=== PATIENT | female | born 1980 | race Caucasian/White ===

== ENCOUNTER 2020-10-23 23:01 | Emergency (ER) | payer MEDICAID, SELFPAY ==
--- NOTE | ~2020-10-23 | XR_ITS ---
EXAMINATION: XR ABDOMEN KUB CLINICAL INDICATION: Abdominal pain COMPARISON: None TECHNIQUE: AP view of the abdomen. FINDINGS: The bowel gas pattern is normal with no evidence of ileus or obstruction. No unusual soft tissue calcifications are noted. The bones are unremarkable. XR/XR KUB IMPRESSION: Unremarkable examination.
[2020-10-23 23:07] VITALS: BP 154/92; PULSE 80; RESP 16; TEMP 36.8; O2SAT 99; BMI 36.7
--- NOTE | 2020-10-23 23:13 | ED.ABDPAIN ---
HPI - Abdominal Pain General Chief Complaint: Abdominal Pain Stated Complaint: abd pain constipation X 3 days Time Seen by Provider: 10/23/20 23:09 Source: patient and EMS Mode of arrival: EMS Limitations: no limitations History of Present Illness HPI narrative: 39 yo female with anxiety under significant amount of stress this week is just about to have her 3rd tomorrow - c/o n/v as well as no BM in 3 days, has no appetite, feels full, tried OTC laxatives and enema without relief, taking clonazepam 1mg BID no change in dose at this time MD elicited complaint: abdominal pain and other (constipation) Onset (ago): day(s) (3) Pain Consistency: constant Location: epigastric Severity: mild Quality: fullness and dull Radiation: none Migration to: no migration Exacerbating factors: eating Relieving factors: nothing Context: other (significant stress) Associated symptoms: nausea, vomiting and constipation Related Data Previous Rx's Medication Instructions Recorded lactulose 15 ml PO DAILY PRN #600 ml 10/24/20 Allergies Allergy/AdvReac Type Severity Reaction Status Date / Time acetaminophen [Vicodin] Allergy Unknown heart Verified 12/11/17 00:00 palpitations hydrocodone [From VICODIN] Allergy Unknown TACHYCARDIA Unverified 03/10/20 15:19 Review of Systems Review of Systems Constitutional : No Weight loss, No Fever, No Chills ENT/Mouth : No sore throat, No Rhinorrhea Eyes: No Swelling, No Redness Cardiovascular : No Chest Pain, No SOB, NoEdema Respiratory : No Cough, No Sputum, No Wheezing Gastrointestinal : Positive Nausea, Positive Vomiting, no Diarrhea, positive abdominal Pain, No Hematochezia, No Melena, pos constipation Genitourinary : No Dysuria, No Urinary Frequency, No Hematuria, No Urgency Musculoskeletal : No joint pain, No Myalgias, No Joint Swelling Skin : No Skin Lesions, No rash Neuro : No Weakness, No Numbness, No Dizziness, No Headache Psych : pos Anxiety/Panic, No Depression Heme/Lymph: No Bruising, No Lymphadenopathy Endocrine : No Polyuria, No Polydipsia All other systems reviewed and are negative. Physical Exam Vital Signs: Vital Signs: Last Vital Signs Temp 98.2 F 10/23/20 23:07 Pulse 80 10/23/20 23:07 Resp 16 10/23/20 23:07 BP 154/92 H 10/23/20 23:07 Pulse Ox 99 10/23/20 23:07 Body Mass Index 36.7 Appearance: Alert. Oriented X3. No acute distress. Eyes: Pupils equal, round and reactive to light. ENT: Pharynx normal. Neck: Normal inspection. Neck supple. CVS: Normal heart rate and rhythm. Pulses normal. Respiratory: No respiratory distress. Breath sounds normal. Abdomen: Soft and nontender. Skin: Skin warm and dry. Normal skin color. Normal skin turgor. Extremities: No lower extremity edema. No calf ttp Neuro: Oriented X 3. No motor deficit. No sensory deficit. Course Course Course Narrative: negative workup stable for DC MDM - Abdominal Pain MDM Narrative Medical decision making narrative: 39 yo female with anxiety with 3 funerals recently at this time will need labs, zofran, PO valium for anxiety, KUB seems more stress induced abdomen is soft and nontender Lab Data Result diagrams: 10/23/20 23:35 10/23/20 23:35 Labs: Lab Results 10/23/20 10/23/20 10/23/20 Range/Units 23:35 23:35 23:35 WBC 13.0 H (4.8-10.8) X10*3/uL RBC 4.17 L (4.20-5.50) X10*6/uL Hgb 12.7 (12.0-16.0) g/dl Hct 38.7 (37-47) % MCV 92.8 (80-98) fL MCH 30.5 (27.0-33.0) pg MCHC 32.8 (31.0-35.0) g/dl RDW 14.6 (11.0-16.0) % Plt Count 258 (160-400) X10*3/uL MPV 9.6 (9.4-12.3) fL Immature Gran % (Auto) 0.6 H (0.0-0.4) % Neut % (Auto) 63.0 (45-73) % Lymph % (Auto) 27.6 (20-40) % [place] % (Auto) 7.0 (2-11) % Eos % (Auto) 1.5 (0-4) % Baso % (Auto) 0.3 (0-2) % Lymph # (Auto) 3.6 (1.2-4.9) X10*3/uL [place] # (Auto) 0.9 (0.1-1.2) X10*3/uL Eos # (Auto) 0.2 (0.0-0.4) X10*3/uL Baso # (Auto) 0.0 (0.0-0.2) X10*3/uL Abs Immat Gran (auto) 0.08 H (0.00-0.03) X10*3/uL Absolute Neuts (auto) 8.2 (2.0-8.3) X10*3/uL Absolute Nucleated RBC 0.000 (0.0-0.012) X10*3/uL Nucleated RBC % (auto) 0.0 (0.0-0.2) /100WBC Hold Blue Top SEE NOTE Sodium 140 (135-145) mmol/L Potassium 4.0 (3.3-5.1) mmol/L Chloride 106 (96-108) mmol/L Carbon Dioxide 27 (22-29) mmol/L Anion Gap 11 L (12-20) BUN 11 (9-16) mg/dL Creatinine 1.07 (0.5-1.4) mg/dL Estim Creat Clear Calc 67.7 Estimated GFR 57 Random Glucose 83 (60-115) mg/dL Calcium 8.9 (8.4-10.2) mg/dL Magnesium 2.1 (1.6-2.6) mg/dL Total Bilirubin 0.2 (0.0-1.0) mg/dL Direct Bilirubin < 0.2 (0.0-0.5) mg/dL AST 12 (5-31) U/L ALT 15 (0-31) U/L Alkaline Phosphatase 71 (39-117) U/L Total Protein 6.7 (6.5-8.0) g/dL Albumin 4.0 (3.5-5.0) g/dL Lipase 53 (8-78) U/L Discharge Plan Discharge Clinical Impression: Constipation Qualifiers: Constipation type: other constipation type Qualified Code(s): K59.09 - Other constipation Patient Disposition: Home, Self-Care Instructions: Constipation (ED), Grief and Loss (ED) Additional Instructions: return to ED for any worsening symptoms or concerns Prescriptions: New lactulose 10 gram/15 mL (15 mL) solution 15 ml PO DAILY PRN (Reason: constipation) Qty: 600 RF: 0 Referrals: [place] [Primary Care Provider] - 2 days (if not better) [facility] Past Medical History Attestation statement: The following information was validated with the patient. Medical History Anxiety Social History Social History (Updated 10/23/20 @ 23:18 by Kallie Pennington DO) Alcohol intake: current Alcohol intake frequency: holidays/special occasions only Alcohol type: beer Smoking Status: Never smoker Smoked in Last 30 Days: Yes Use of substances other than those prescribed or required for medical reasons: No Substance Use Type: Marijuana Advance Directives: No
[2020-10-23] MEDS: diazePAM 5 MG TABLET PO (23:32)
[2020-10-23 23:41] LABS: MANUAL DIFF FLAG NO
[2020-10-23 23:42] LABS: Basophils Percent Auto 0.3 % (0-2); Eosinophils Absolute Auto 0.2 X10*3/uL (0.0-0.4); Eosinophils Percent Auto 1.5 % (0-4); Hematocrit 38.7 % (37-47); Hemoglobin 12.7 g/dl (12.0-16.0); Imm Gran Abs Auto 0.08 X10*3/uL (0.00-0.03); Imm Gran Pct Auto 0.6 % (0.0-0.4); Lymphocytes Absolute Auto 3.6 X10*3/uL (1.2-4.9); Lymphocytes Percent Auto 27.6 % (20-40); Mean Corpuscular HGB Conc 32.8 g/dl (31.0-35.0); Mean Corpuscular Hemoglobin 30.5 pg (27.0-33.0); Mean Corpuscular Volume 92.8 fL (80-98); Mean Platelet Volume 9.6 fL (9.4-12.3); Monocytes Absolute Auto 0.9 X10*3/uL (0.1-1.2); Neutrophils Absolute Auto 8.2 X10*3/uL (2.0-8.3); Platelet Count 258 X10*3/uL (160-400); Red Blood Count 4.17 X10*6/uL (4.20-5.50); Red Cell Distribution Width 14.6 % (11.0-16.0)
[2020-10-24 00:07] LABS: Alanine Aminotransferase 15 U/L (0-31); Alkaline Phosphatase 71 U/L (39-117); Anion Gap 11 (12-20); Aspartate Amino Transferase 12 U/L (5-31); Bilirubin Direct < 0.2 mg/dL (0.0-0.5); Bilirubin Total 0.2 mg/dL (0.0-1.0); Blood Urea Nitrogen 11 mg/dL (9-16); Calcium 8.9 mg/dL (8.4-10.2); Carbon Dioxide 27 mmol/L (22-29); Chloride 106 mmol/L (96-108); Creatinine Clr Calc Pharmacy 67.7; Estimated Glomerular Filt Rate 57; Glucose Random 83 mg/dL (60-115); Lipase 53 U/L (8-78); Magnesium 2.1 mg/dL (1.6-2.6); Sodium 140 mmol/L (135-145); Total Protein 6.7 g/dL (6.5-8.0)
== END 2020-10-24 01:09 | disposition home or self-care (01) ==
PROVIDERS: Emergency Provider Emergency Medicine
DX: K59.09 Other constipation (principal); R10.13 Epigastric pain; F12.90 Cannabis use, unspecified, uncomplicated; Z79.899 Other long term (current) drug therapy
CPT/HCPCS: 36415; 74018; 80048; 80076; 83690; 83735; 85025; 99284

== ENCOUNTER 2022-05-15 13:52 | Emergency (ER) | payer MEDICAID, SELFPAY ==
--- NOTE | ~2022-05-15 | XR_ITS ---
EXAMINATION: XR CHEST CLINICAL INFORMATION: Cough. Chest pain. COMPARISON: None TECHNIQUE: 2 views of the chest were obtained. FINDINGS: No significant abnormality is noted involving the heart, lungs, mediastinum, bony thorax or soft tissues. XR/XR chest 2V IMPRESSION: Unremarkable examination.
[2022-05-15 14:17] VITALS: BP 157/95; PULSE 87; RESP 18; TEMP 36.2; O2SAT 94; BMI 34.2
--- NOTE | 2022-05-15 14:24 | ED.GENADULT ---
HPI - General Adult General Chief complaint: General Medical <Sean Wagnoer MD - Last Filed: 05/15/22 14:29> Stated complaint: high bp from doctors office <Sean Wagoner MD - Last Filed: 05/15/22 14:29> Time Seen by Provider: 05/15/22 14:46 <Sean Wagoner MD - Last Filed: 05/15/22 14:29> Source: patient <Eleni Floyd NP - Last Filed: 05/15/22 17:40> Mode of arrival: ambulatory <Eleni Floyd NP - Last Filed: 05/15/22 17:40> Limitations: no limitations <Eleni Floyd NP - Last Filed: 05/15/22 17:40> History of Present Illness HPI narrative: This is a 41-year-old female with a history of anxiety, depression, migraines who presents from her primary care office with reports of elevated blood pressure. Per patient for the last 3-4 weeks she has had bilateral arm, shoulder, neck achiness and pain with no known injury or trauma. Patient reports taking ibuprofen 800 mg 3 times daily and using heat with continued symptoms. Patient denies any weakness of the upper extremities, numbness or tingling. No fevers or chills. Patient reports some intermittent chest discomfort over the right side which is not exertional or pleuritic in nature with no associated shortness of breath, fever, vomiting, diaphoresis. Patient does report a cough. Patient also reports intermittent headaches but reports history of migraines and these feels similar to her previous headaches. Patient denies any history of hypertension. <Eleni Floyd NP - Last Filed: 05/15/22 17:40> Related Data Home medications: Previous Rx's Medication Instructions Recorded lactulose 10 gram/15 mL (15 mL) 15 ml PO DAILY PRN constipation 10/24/20 oral solution #600 mL amlodipine 5 mg tablet (Norvasc) 5 mg PO DAILY #30 tabs 05/15/22 cyclobenzaprine 10 mg tablet 10 mg PO TID PRN muscle spasm #10 05/15/22 tabs <Sean Wagoner MD - Last Filed: 05/15/22 14:29> Allergies/adverse reactions: Allergies Allergy/AdvReac Type Severity Reaction Status Date / Time acetaminophen [Vicodin] Allergy Unknown heart Verified 12/11/17 00:00 palpitations hydrocodone [From VICODIN] Allergy Unknown TACHYCARDIA Unverified 03/10/20 15:19 <Sean Wagoner MD - Last Filed: 05/15/22 14:29> Review of Systems Review of Systems: Yes all other systems are reviewed and are negative <Eleni Floyd NP - Last Filed: 05/15/22 17:40> Constitutional: Constitutional: Reports no additional constitutional complaints, Denies body ache(s), Denies chills, Denies fever(s), Reports headache(s) and Denies weakness <Eleni Floyd NP - Last Filed: 05/15/22 17:40> Eyes: Eyes: Reports no additional eye complaints and Denies change in vision <Eleni Floyd NP - Last Filed: 05/15/22 17:40> ENT: Reports system reviewed and no additional complaints, except as documented, Denies dizziness, Reports headache(s), Denies nasal congestion, Denies nasal discharge and Denies neck pain <Eleni Floyd NP - Last Filed: 05/15/22 17:40> Cardiovascular: Cardiovascular: Reports no additional cardiovascular complaints, Reports chest pain, Denies leg edema and Denies dyspnea <Eleni Floyd NP - Last Filed: 05/15/22 17:40> Respiratory: Respiratory: Reports no additional respiratory complaints, Reports cough and Denies dyspnea <Eleni Floyd NP - Last Filed: 05/15/22 17:40> Gastrointestinal: Gastrointestinal: Reports no additional gastrointestinal complaints, Denies abdominal pain, Denies diarrhea, Denies nausea and Denies vomiting <Eleni Floyd NP - Last Filed: 05/15/22 17:40> Genitourinary: Genitourinary: Reports no additional female genitourinary complaints and Denies urinary incontinence <Eleni Floyd NP - Last Filed: 05/15/22 17:40> Musculoskeletal: Musculoskeletal: Reports no additional musculoskeletal complaints, Denies back pain, Reports myalgias, Reports arthralgias, Denies joint swelling, Denies neck pain, Denies numbness and Denies tingling <Eleni Floyd NP - Last Filed: 05/15/22 17:40> Integumentary/Breasts: Skin/Breast: Reports system reviewed and no additional complaints, except as docu and Denies rash <Eleni Floyd NP - Last Filed: 05/15/22 17:40> Neurologic: Reports system reviewed and no additional complaints, except as documented, Denies dizziness, Reports headache(s), Denies numbness, Denies tingling and Denies weakness <Elnei Floyd NP - Last Filed: 05/15/22 17:40> [facility] Past Medical History Attestation statement: The following information was validated with the patient. <Eleni Floyd NP - Last Filed: 05/15/22 17:40> Source: old records reviewed and nursing notes reviewed <Eleni Floyd NP - Last Filed: 05/15/22 17:40> Medical History: Medical History Anxiety <Sean Wagoner MD - Last Filed: 05/15/22 14:29> Social History Social History: Social History (Updated 10/23/20 @ 23:18 by Rosa Pennington DO) Alcohol intake: current Alcohol intake frequency: holidays/special occasions only Alcohol type: beer Substance Use Type: Marijuana Advance Directives: No Advance Directives Information Provided: Yes <Sean Wagoner MD - Last Filed: 05/15/22 14:29> Physical Exam ED Vital Signs: Vital Signs - 24 hr 05/15/22 14:17 05/15/22 15:11 Temperature 97.2 F Pulse Rate 87 77 Respiratory Rate 18 18 Blood Pressure 157/95 H 153/87 H Pulse Oximetry 94 97 Oxygen Delivery Method Room Air BMI result Body Mass Index 34.2 <Sean Wagoner MD - Last Filed: 05/15/22 14:29> Vital Signs - 24 hr 05/15/22 14:17 05/15/22 15:11 Temperature 97.2 F Pulse Rate 87 77 Respiratory Rate 18 18 Blood Pressure 157/95 H 153/87 H Pulse Oximetry 94 97 Oxygen Delivery Method Room Air BMI result Body Mass Index 34.2 <Eleni Floyd NP - Last Filed: 05/15/22 17:40> Const General: cooperative, healthy appearing, comfortable and no acute distress <Eleni Flyod NP - Last Filed: 05/15/22 17:40> Orientation/consciousness: patient oriented x3 <Eleni Floyd NP - Last Filed: 05/15/22 17:40> Limitations: no limitations <Eleni Floyd NP - Last Filed: 05/15/22 17:40> HENMT Head: Yes normal to inspection <Eleni Floyd NP - Last Filed: 05/15/22 17:40> Ears: hearing grossly normal bilaterally and TM's normal bilaterally <Eleni Floyd NP - Last Filed: 05/15/22 17:40> Throat: Yes posterior oropharynx normal, Yes tonsils normal and Yes uvula midline <Eleni Floyd NP - Last Filed: 05/15/22 17:40> Eyes General: appearance normal, both eyes and all related structures <Eleni Floyd NP - Last Filed: 05/15/22 17:40> Pupils: Equal, round and reactive pupils present <Eleni Floyd NP - Last Filed: 05/15/22 17:40> Neck Other: Over the upper shoulders bilaterally and over the trapezius there is muscle tenderness which is worsened with palpation. There is full range of motion the shoulders no difficulty. There is no midline cervical tenderness, step-offs deformities. Pain is worsened with bilateral abduction of both arms <Eleni Floyd NP - Last Filed: 05/15/22 17:40> Neck: Yes normal visual inspection, Yes full ROM, Yes no lymphadenopathy and Yes no meningeal signs <Eleni Floyd NP - Last Filed: 05/15/22 17:40> Chest Other: There is tenderness on palpation to the right chest wall <Eleni Floyd NP - Last Filed: 05/15/22 17:40> Chest palpation & inspection: normal inspection of the chest <Eleni Floyd NP - Last Filed: 05/15/22 17:40> Resp Effort & Inspection: normal respiratory effort <Eleni Floyd NP - Last Filed: 05/15/22 17:40> Auscultation: clear to auscultation bilaterally <Eleni Floyd GEOLOGY SCIENTIST - Last Filed: 05/15/22 17:40> Cardio Rate: regular rate <Eleni Floyd GEOLOGY SCIENTIST - Last Filed: 05/15/22 17:40> Rhythm: regular rhythm <Eleni Floyd GEOLOGY SCIENTIST - Last Filed: 05/15/22 17:40> Peripheral pulses: Peripheral pulses 2+ throughout <Eleni Floyd GEOLOGY SCIENTIST - Last Filed: 05/15/22 17:40> GI Inspection: Yes normal to inspection <Eleni Floyd GEOLOGY SCIENTIST - Last Filed: 05/15/22 17:40> Palpation (GI): Soft to palpation and nontender <Eleni Floyd GEOLOGY SCIENTIST - Last Filed: 05/15/22 17:40> General: Yes no CVA tenderness <Eleni Floyd GEOLOGY SCIENTIST - Last Filed: 05/15/22 17:40> Back/Spine/Pelvis Back: no CVA tenderness <Eleni Floyd GEOLOGY SCIENTIST - Last Filed: 05/15/22 17:40> Thoracic/Lumbar Spine: thoracic and lumbar spine normal to inspection <Eleni Floyd GEOLOGY SCIENTIST - Last Filed: 05/15/22 17:40> Skin General skin exam: no rashes or lesions noted <Eleni Floyd GEOLOGY SCIENTIST - Last Filed: 05/15/22 17:40> Neuro General: patient oriented x3, moves all extremities and no meningeal signs <Eleni Floyd GEOLOGY SCIENTIST - Last Filed: 05/15/22 17:40> Cranial nerves: Yes CN's II-XII intact bilaterally, Yes Equal, round and reactive pupils present, Yes Bilaterally intact EOM present, Yes Nystagmus not present and Yes Normal facial strength present <Eleni Floyd NP - Last Filed: 05/15/22 17:40> Cognition (Neuro): normal cognition <Eleni Floyd GEOLOGY SCIENTIST - Last Filed: 05/15/22 17:40> Gait exam (Neuro): Normal gait present <Eleni Floyd GEOLOGY SCIENTIST - Last Filed: 05/15/22 17:40> Motor exam (neuro): 5/5 motor strength present throughout <Eleni Floyd NP - Last Filed: 05/15/22 17:40> Sensory Exam: Normal double simultaneous stimulation for sensation <Eleni Floyd NP - Last Filed: 05/15/22 17:40> Deep tendon reflexes (DTR's): Right triceps reflex intensity grade: 2+, Left triceps reflex intensity grade: 2+, Rt Biceps (C5, C6): 2+, Left biceps reflex intensity grade: 2+, Right brachioradialis reflex intensity grade: 2+ and Left brachioradialis reflex intensity grade: 2+ <Eleni Floyd NP - Last Filed: 05/15/22 17:40> Extrem General: Yes normal to inspection <Eleni Floyd NP - Last Filed: 05/15/22 17:40> Course Course Course Narrative: Labs are unremarkable. X-ray shows no acute finding. EKG is negative for ischemia. Likely muscular in regards to the upper extremity pain and tenderness. Will recommend continuing NSAID and at Flexeril p.r.n.. Patient noted to be continued hypertension. No history of same. Will start low-dose amlodipine. Patient has follow-up May 29 with her primary care for follow-up. Reviewed worrisome signs and symptoms of when to return to the emergency room. Comfortable discharge home. <Eleni Floyd NP - Last Filed: 05/15/22 17:40> Reevaluation(s) Reevaluation #1: Patient seen in the PIT. 41 yo female with PMH anxiety presents to the ED for elevated blood pressure, neck and shoulder stiffness. Seen today by her PCP and advised to come to the ED. Unclear as to which issue she is here for. Labs ordered. <Sean Wagoner MD - Last Filed: 05/15/22 14:29> Time: 14:29 <Sean Wagoner MD - Last Filed: 05/15/22 14:29> Medical Decision Making MDM Narrative Medical decision making narrative: 41-year-old female here with several weeks of upper extremity and upper back achiness, tightness unrelieved with ibuprofen and heat at home. Patient was at her primary care doctor for this complaint when she was noted to have high blood pressure. Patient has no history of high blood pressure. Patient also has complaints of some intermittent chest pain and headaches over the last few weeks. History of present illness is not typical for ACS. However will consider in obtain EKG, troponin. Additionally will rule out PE with D-dimer. Also consider mild rhabdomyolysis, electrolyte abnormality, pneumonia. Will check additional labs, COVID screen, chest x-ray, EKG <Eleni Floyd NP - Last Filed: 05/15/22 17:40> Medical Records Medical records reviewed: Yes I reviewed the patient's medical records. <Eleni Floyd NP - Last Filed: 05/15/22 17:40> Lab Data Lab results reviewed: Yes I reviewed the patient's lab results. <Eleni Floyd NP - Last Filed: 05/15/22 17:40> Result diagrams: : 05/15/22 14:37 05/15/22 14:37 <Sean Wagoner MD - Last Filed: 05/15/22 14:29> Labs: Lab Results 05/15/22 05/15/22 05/15/22 Range/Units 14:37 14:37 15:44 WBC 7.5 (4.8-10.8) X10*3/uL RBC 4.85 (4.20-5.50) X10*6/uL Hgb 14.3 (12.0-16.0) g/dl Hct 43.9 (37.0-47.0) % MCV 90.5 (80.0-98.0) fL MCH 29.5 (27.0-33.0) pg MCHC 32.6 (31.0-35.0) g/dl RDW 13.9 (11.0-16.0) % Plt Count 286 (160-400) X10*3/uL MPV 9.5 (9.4-12.3) fL Immature Gran % (Auto) 0.4 (0.0-0.4) % Neut % (Auto) 62.2 (45-73) % Lymph % (Auto) 27.5 (20-40) % [place] % (Auto) 8.2 (2-11) % Eos % (Auto) 1.3 (0-4) % Baso % (Auto) 0.4 (0-2) % Lymph # (Auto) 2.1 (1.2-4.9) X10*3/uL [place] # (Auto) 0.6 (0.1-1.2) X10*3/uL Eos # (Auto) 0.1 (0.0-0.4) X10*3/uL Baso # (Auto) 0.0 (0.0-0.2) X10*3/uL Abs Immat Gran (auto) 0.03 (0.00-0.03) X10*3/uL Absolute Neuts (auto) 4.7 (2.0-8.3) x10*3/uL Absolute Nucleated RBC 0.000 (0.0-0.012) X10*3/uL Nucleated RBC % (auto) 0.0 (0.0-0.2) /100WBC PT (10.0-13.1) SEC INR (0.9-1.1) D-Dimer High Sensitivty NG/ML Sodium 139 (135-145) mmol/L Potassium 4.9 D (3.3-5.1) mmol/L Chloride 104 (96-108) mmol/L Carbon Dioxide 26 (22-29) mmol/L Anion Gap 14 (12-20) BUN 8 L (9-16) mg/dL Creatinine 0.79 (0.5-1.4) mg/dL Estim Creat Clear Calc 86.4 Estimated GFR > 60 Random Glucose 80 (60-115) mg/dL Calcium 9.6 D (8.4-10.2) mg/dL Total Bilirubin 0.4 (0.0-1.0) mg/dL Direct Bilirubin < 0.2 (0.0-0.5) mg/dL AST 14 (5-31) U/L ALT 12 (0-31) U/L Alkaline Phosphatase 66 (39-117) U/L Total Creatine Kinase 61 (26-140) U/L Troponin I High Sens (<3.5-17.0) ng/L Total Protein 7.1 (6.5-8.0) g/dL Albumin 4.2 (3.5-5.0) g/dL COVID-19 (LEXX) Negative (Negative) COVID-19 Clin Com See Note 05/15/22 05/15/22 Range/Units 15:45 15:45 WBC (4.8-10.8) X10*3/uL RBC (4.20-5.50) X10*6/uL Hgb (12.0-16.0) g/dl Hct (37.0-47.0) % MCV (80.0-98.0) fL MCH (27.0-33.0) pg MCHC (31.0-35.0) g/dl RDW (11.0-16.0) % Plt Count (160-400) X10*3/uL MPV (9.4-12.3) fL Immature Gran % (Auto) (0.0-0.4) % Neut % (Auto) (45-73) % Lymph % (Auto) (20-40) % [place] % (Auto) (2-11) % Eos % (Auto) (0-4) % Baso % (Auto) (0-2) % Lymph # (Auto) (1.2-4.9) X10*3/uL [place] # (Auto) (0.1-1.2) X10*3/uL Eos # (Auto) (0.0-0.4) X10*3/uL Baso # (Auto) (0.0-0.2) X10*3/uL Abs Immat Gran (auto) (0.00-0.03) X10*3/uL Absolute Neuts (auto) (2.0-8.3) x10*3/uL Absolute Nucleated RBC (0.0-0.012) X10*3/uL Nucleated RBC % (auto) (0.0-0.2) /100WBC PT 11.0 (10.0-13.1) SEC INR 1.0 (0.9-1.1) D-Dimer High Sensitivty < 150 NG/ML Sodium (135-145) mmol/L Potassium (3.3-5.1) mmol/L Chloride (96-108) mmol/L Carbon Dioxide (22-29) mmol/L Anion Gap (12-20) BUN (9-16) mg/dL Creatinine (0.5-1.4) mg/dL Estim Creat Clear Calc Estimated GFR Random Glucose (60-115) mg/dL Calcium (8.4-10.2) mg/dL Total Bilirubin (0.0-1.0) mg/dL Direct Bilirubin (0.0-0.5) mg/dL AST (5-31) U/L ALT (0-31) U/L Alkaline Phosphatase (39-117) U/L Total Creatine Kinase (26-140) U/L Troponin I High Sens < 3.5 (<3.5-17.0) ng/L Total Protein (6.5-8.0) g/dL Albumin (3.5-5.0) g/dL COVID-19 (LEXX) (Negative) COVID-19 Clin Com <Sean Wagoner MD - Last Filed: 05/15/22 14:29> Lab Results 05/15/22 05/15/22 05/15/22 Range/Units 14:37 14:37 15:44 WBC 7.5 (4.8-10.8) X10*3/uL RBC 4.85 (4.20-5.50) X10*6/uL Hgb 14.3 (12.0-16.0) g/dl Hct 43.9 (37.0-47.0) % MCV 90.5 (80.0-98.0) fL MCH 29.5 (27.0-33.0) pg MCHC 32.6 (31.0-35.0) g/dl RDW 13.9 (11.0-16.0) % Plt Count 286 (160-400) X10*3/uL MPV 9.5 (9.4-12.3) fL Immature Gran % (Auto) 0.4 (0.0-0.4) % Neut % (Auto) 62.2 (45-73) % Lymph % (Auto) 27.5 (20-40) % [place] % (Auto) 8.2 (2-11) % Eos % (Auto) 1.3 (0-4) % Baso % (Auto) 0.4 (0-2) % Lymph # (Auto) 2.1 (1.2-4.9) X10*3/uL [place] # (Auto) 0.6 (0.1-1.2) X10*3/uL Eos # (Auto) 0.1 (0.0-0.4) X10*3/uL Baso # (Auto) 0.0 (0.0-0.2) X10*3/uL Abs Immat Gran (auto) 0.03 (0.00-0.03) X10*3/uL Absolute Neuts (auto) 4.7 (2.0-8.3) x10*3/uL Absolute Nucleated RBC 0.000 (0.0-0.012) X10*3/uL Nucleated RBC % (auto) 0.0 (0.0-0.2) /100WBC PT (10.0-13.1) SEC INR (0.9-1.1) D-Dimer High Sensitivty NG/ML Sodium 139 (135-145) mmol/L Potassium 4.9 D (3.3-5.1) mmol/L Chloride 104 (96-108) mmol/L Carbon Dioxide 26 (22-29) mmol/L Anion Gap 14 (12-20) BUN 8 L (9-16) mg/dL Creatinine 0.79 (0.5-1.4) mg/dL Estim Creat Clear Calc 86.4 Estimated GFR > 60 Random Glucose 80 (60-115) mg/dL Calcium 9.6 D (8.4-10.2) mg/dL Total Bilirubin 0.4 (0.0-1.0) mg/dL Direct Bilirubin < 0.2 (0.0-0.5) mg/dL AST 14 (5-31) U/L ALT 12 (0-31) U/L Alkaline Phosphatase 66 (39-117) U/L Total Creatine Kinase 61 (26-140) U/L Troponin I High Sens (<3.5-17.0) ng/L Total Protein 7.1 (6.5-8.0) g/dL Albumin 4.2 (3.5-5.0) g/dL COVID-19 (LEXX) Negative (Negative) COVID-19 Clin Com See Note 05/15/22 05/15/22 Range/Units 15:45 15:45 WBC (4.8-10.8) X10*3/uL RBC (4.20-5.50) X10*6/uL Hgb (12.0-16.0) g/dl Hct (37.0-47.0) % MCV (80.0-98.0) fL MCH (27.0-33.0) pg MCHC (31.0-35.0) g/dl RDW (11.0-16.0) % Plt Count (160-400) X10*3/uL MPV (9.4-12.3) fL Immature Gran % (Auto) (0.0-0.4) % Neut % (Auto) (45-73) % Lymph % (Auto) (20-40) % [place] % (Auto) (2-11) % Eos % (Auto) (0-4) % Baso % (Auto) (0-2) % Lymph # (Auto) (1.2-4.9) X10*3/uL [place] # (Auto) (0.1-1.2) X10*3/uL Eos # (Auto) (0.0-0.4) X10*3/uL Baso # (Auto) (0.0-0.2) X10*3/uL Abs Immat Gran (auto) (0.00-0.03) X10*3/uL Absolute Neuts (auto) (2.0-8.3) x10*3/uL Absolute Nucleated RBC (0.0-0.012) X10*3/uL Nucleated RBC % (auto) (0.0-0.2) /100WBC PT 11.0 (10.0-13.1) SEC INR 1.0 (0.9-1.1) D-Dimer High Sensitivty < 150 NG/ML Sodium (135-145) mmol/L Potassium (3.3-5.1) mmol/L Chloride (96-108) mmol/L Carbon Dioxide (22-29) mmol/L Anion Gap (12-20) BUN (9-16) mg/dL Creatinine (0.5-1.4) mg/dL Estim Creat Clear Calc Estimated GFR Random Glucose (60-115) mg/dL Calcium (8.4-10.2) mg/dL Total Bilirubin (0.0-1.0) mg/dL Direct Bilirubin (0.0-0.5) mg/dL AST (5-31) U/L ALT (0-31) U/L Alkaline Phosphatase (39-117) U/L Total Creatine Kinase (26-140) U/L Troponin I High Sens < 3.5 (<3.5-17.0) ng/L Total Protein (6.5-8.0) g/dL Albumin (3.5-5.0) g/dL COVID-19 (LEXX) (Negative) COVID-19 Clin Com <Eleni Floyd NP - Last Filed: 05/15/22 17:40> Imaging Data Chest x-ray: Attestation: I personally reviewed and interpreted this imaging study as follows: <Eleni Floyd NP - Last Filed: 05/15/22 17:40> Radiologist's impression: [address] [address] XRay Report Signed Patient: Sara Casarez MR#: [id number] : 1980 Acct:[id number] Age/Sex: 41 / F ADM Date: 05/15/22 Loc: .ED Attending Dr: Ordering Physician: Eleni Floyd NP Date of Service: 05/15/22 Procedure(s): XR chest 2V Accession Number(s): [id number] cc: Eleni Floyd NP~ EXAMINATION: XR CHEST CLINICAL INFORMATION: Cough. Chest pain. COMPARISON: None TECHNIQUE: 2 views of the chest were obtained. FINDINGS: No significant abnormality is noted involving the heart, lungs, mediastinum, bony thorax or soft tissues. XR/XR chest 2V IMPRESSION: Unremarkable examination. <Eleni Floyd NP - Last Filed: 05/15/22 17:40> ECG Data Attestation: I personally reviewed and interpreted this ECG as follows: <Eleni Floyd NP - Last Filed: 05/15/22 17:40> Interpretation: Normal sinus rhythm with a rate of 76, normal TX, normal QRS, normal QT <Eleni Floyd NP - Last Filed: 05/15/22 17:40> Discharge Plan Discharge Clinical Impression: Muscle strain, Chest pain, Hypertension <Sean Wagoner MD - Last Filed: 05/15/22 14:29> Patient Disposition: Home, Self-Care <Sean Wagoner MD - Last Filed: 05/15/22 14:29> Instructions: Chest Pain (ED), Muscle Strain (ED), Musculoskeletal Pain (ED), Hypertension (ED) <Sean Wagoner MD - Last Filed: 05/15/22 14:29> Additional Instructions: Your blood work, EKG and chest x-ray all reassuring Continue ibuprofen, heat to the area Follow-up with primary care doctor as scheduled <Sean Wagoner MD - Last Filed: 05/15/22 14:29> Prescriptions: New cyclobenzaprine 10 mg tablet 10 mg PO TID PRN (Reason: muscle spasm) Qty: 10 0RF amlodipine [Norvasc] 5 mg tablet 5 mg PO DAILY Qty: 30 0RF No Action lactulose 10 gram/15 mL (15 mL) solution 15 ml PO DAILY PRN (Reason: constipation) Qty: 600 0RF <Sean Wagoner MD - Last Filed: 05/15/22 14:29> Referrals: [facility] [Primary Care Provider] - 1 week <Sean Wagoner MD - Last Filed: 05/15/22 14:29> Interventions: ED Discharge Assessment Last Done: 05/15/22 16:44 <Sean Wagoner MD - Last Filed: 05/15/22 14:29> Discharge Date/Time: 05/15/22 16:44 <Sean Wagoner MD - Last Filed: 05/15/22 14:29>
--- NOTE | 2022-05-15 14:26 | ECG_ITS ---
Test Reason : HYPERENSION Blood Pressure : / mmHG Vent. Rate : 076 BPM Atrial Rate : 076 BPM P-R Int : 146 ms QRS Dur : 076 ms QT Int : 382 ms P-R-T Axes : 060 052 028 degrees QTc Int : 429 ms Normal sinus rhythm Normal ECG When compared with ECG of 10-NOV-2016 22:06, No significant change was found Referred By: Sean Wagoner Electronically Signed By:LYNDA ARCE MD
[2022-05-15 14:46] LABS: MANUAL DIFF FLAG NO
[2022-05-15 14:47] LABS: Basophils Percent Auto 0.4 % (0-2); Eosinophils Absolute Auto 0.1 X10*3/uL (0.0-0.4); Eosinophils Percent Auto 1.3 % (0-4); Hematocrit 43.9 % (37.0-47.0); Hemoglobin 14.3 g/dl (12.0-16.0); Imm Gran Abs Auto 0.03 X10*3/uL (0.00-0.03); Imm Gran Pct Auto 0.4 % (0.0-0.4); Lymphocytes Absolute Auto 2.1 X10*3/uL (1.2-4.9); Lymphocytes Percent Auto 27.5 % (20-40); Mean Corpuscular HGB Conc 32.6 g/dl (31.0-35.0); Mean Corpuscular Hemoglobin 29.5 pg (27.0-33.0); Mean Corpuscular Volume 90.5 fL (80.0-98.0); Mean Platelet Volume 9.5 fL (9.4-12.3); Monocytes Absolute Auto 0.6 X10*3/uL (0.1-1.2); Monocytes Percent Auto 8.2 % (2-11); Neutrophils Absolute Auto 4.7 x10*3/uL (2.0-8.3); Neutrophils Percent Auto 62.2 % (45-73); Platelet Count 286 X10*3/uL (160-400); Red Blood Count 4.85 X10*6/uL (4.20-5.50); Red Cell Distribution Width 13.9 % (11.0-16.0); White Blood Count 7.5 X10*3/uL (4.8-10.8)
[2022-05-15 15:07] LABS: Anion Gap 14 (12-20); Blood Urea Nitrogen 8 mg/dL (9-16); Calcium 9.6 mg/dL (8.4-10.2); Carbon Dioxide 26 mmol/L (22-29); Chloride 104 mmol/L (96-108); Creatinine Clr Calc Pharmacy 86.4; Estimated Glomerular Filt Rate > 60; Glucose Random 80 mg/dL (60-115); Potassium 4.9 mmol/L (3.3-5.1); Sodium 139 mmol/L (135-145)
[2022-05-15 15:11] VITALS: BP 153/87; PULSE 77; RESP 18; O2SAT 97
[2022-05-15 16:06] LABS: Alanine Aminotransferase 12 U/L (0-31); Albumin Level 4.2 g/dL (3.5-5.0); Alkaline Phosphatase 66 U/L (39-117); Aspartate Amino Transferase 14 U/L (5-31); Bilirubin Direct < 0.2 mg/dL (0.0-0.5); Bilirubin Total 0.4 mg/dL (0.0-1.0); Total Protein 7.1 g/dL (6.5-8.0)
[2022-05-15 16:10] LABS: D Dimer High Sensitivity < 150 NG/ML
[2022-05-15 16:14] LABS: COVID-19 Test Negative (Negative); IDNOW Serial# 9DB6401D
[2022-05-15 16:20] LABS: Troponin-I High Sensitivity < 3.5 ng/L (<3.5-17.0)
== END 2022-05-15 16:44 | disposition home or self-care (01) ==
PROVIDERS: Emergency Medicine; Nurse Practitioner Family; Emergency Provider Emergency Medicine
DX: R07.89 Other chest pain (principal); I10 Essential (primary) hypertension; M54.2 Cervicalgia; R51.9 Headache, unspecified; Z20.822 Contact with and (suspected) exposure to COVID-19; Z79.899 Other long term (current) drug therapy
CPT/HCPCS: 36415; 71046; 80048; 80076; 82550; 84484; 85025; 85379; 85610; 87635; 93005; 99283; 99284

== ENCOUNTER 2022-07-31 02:39 | Emergency (ER) | payer MEDICAID, SELFPAY ==
[2022-07-31 02:51] VITALS: BP 100/82; BP 132/70; PULSE 81; PULSE 90; RESP 16; TEMP 36.7; O2SAT 94; O2SAT 99; BMI 35.2
--- NOTE | 2022-07-31 02:52 | ECG_ITS ---
Test Reason : leftside pain Blood Pressure : / mmHG Vent. Rate : 072 BPM Atrial Rate : 072 BPM P-R Int : 142 ms QRS Dur : 078 ms QT Int : 430 ms P-R-T Axes : 057 072 049 degrees QTc Int : 470 ms Normal sinus rhythm Possible Left atrial enlargement Borderline ECG When compared with ECG of 15-MAY-2022 14:30, No significant change was found Referred By: Ning Marina Electronically Signed By:KERON EVANS MD
--- NOTE | 2022-07-31 02:54 | ED.NECK ---
HPI - Neck Pain/Injury General Chief Complaint: Extremity Problem Stated Complaint: pain-arms to fingertips Time Seen by Provider: 07/31/22 02:52 History of Present Illness HPI Narrative: Patient is a 41-year-old female woke up with a sudden onset left-sided neck and shoulder pain. The pain is worse with turning her head to the left. Worse with movement of the shoulder. The pain is sharp. Patient has a history of muscle spasms in the past. Denies any fever chills. Denies any weakness in the hand. Weakness in the elbow. Pain in the elbow or hand. Denies any chest pain. No abdominal pain. No shortness of breath. The pain is extreme it is worse with movement of the left shoulder. Patient denies any pain on movement of the right shoulder. Positive history of hypertension positive history of smoking positive family history of coronary artery disease father had an NV at the age of 50. Patient from home. Positive history of muscle spasms in the past. Related Data Previous Rx's Medication Instructions Recorded lactulose 10 gram/15 mL (15 mL) 15 ml PO DAILY PRN constipation 10/24/20 oral solution #600 mL amlodipine 5 mg tablet (Norvasc) 5 mg PO DAILY #30 tabs 05/15/22 cyclobenzaprine 10 mg tablet 10 mg PO TID PRN muscle spasm #10 05/15/22 tabs cyclobenzaprine 10 mg tablet 10 mg PO TID PRN pain #14 tabs 07/31/22 ibuprofen 400 mg tablet 400 mg PO Q6H PRN pain #20 tabs 07/31/22 Allergies Allergy/AdvReac Type Severity Reaction Status Date / Time acetaminophen [Vicodin] Allergy Unknown heart Verified 12/11/17 00:00 palpitations hydrocodone [From VICODIN] Allergy Unknown TACHYCARDIA Unverified 03/10/20 15:19 Review of Systems Review of Systems: Positive neck pain and shoulder pain No chest pain or shortness of breath no diaphoresis Yes all other systems are reviewed and are negative [facility] Past Medical History Attestation statement: The following information was validated with the patient. Medical History Anxiety Social History Social History Alcohol intake: current Alcohol intake frequency: holidays/special occasions only Alcohol type: beer Substance Use Type: Marijuana Advance Directives: No Advance Directives Information Provided: Yes Physical Exam Vital Signs: Vital Signs: Last Vital Signs Temp 98.0 F 07/31/22 02:51 Pulse 81 07/31/22 02:51 Resp 16 07/31/22 02:51 BP 100/82 07/31/22 02:51 Pulse Ox 99 07/31/22 02:51 O2 Del Method 07/31/22 02:51 BMI result Body Mass Index 35.2 Appearance: Alert. Oriented X3. No acute distress. Eyes: Pupils equal, round and reactive to light. ENT: Pharynx normal. Neck: Normal inspection. Neck supple. No lymph nodes noted. No crepitus CVS: Normal heart rate and rhythm. Pulses normal. Normal S1 and S2 Respiratory: No respiratory distress. Breath sounds normal. No Wheezing. No rales Abdomen: Soft and nontender. No rigidity. No distention. good BS x4 Skin: Skin warm and dry. Normal skin color. Normal skin turgor. Extremities: No lower extremity edema. Neurovascular intact to all extremities. No Lacerations. No Rash. Pain on movement of the left shoulder. Sensation over the axillary median radial ulnar nerve intact movement of the elbow wrist fingers intact capillary refill less than 2 seconds. Positive pain on palpation of the trapezius muscle on the left side. There is no spinal tenderness. Pain on turning her head to the left. There is no pain on flexion or extension of the neck Neuro: Oriented X 3. No motor deficit. No sensory deficit. Moving all extermities. No slurred speech Medications Administered Discontinued Medications Generic Name Dose Route Start Last Admin Trade Name Samina PRN Reason Stop Dose Admin Hydromorphone HCl 0.5 mg 07/31/22 02:52 07/31/22 03:20 Hydromorphone Hcl 0.5 Mg/0.5 Ml Syringe IVPUSH 07/31/22 02:53 0.5 mg ONCE ONE Administration Protocol Lorazepam 1 mg 07/31/22 02:52 07/31/22 03:20 Lorazepam 2 Mg/Ml Vial IVPUSH 07/31/22 02:53 1 mg ONCE ONE Administration Medical Decision Making Medical Decision Making MDM Narrative: Pain most consistent with having torticollis. However given multiple cardiac risk factor an EKG was done. My interpretation to EKG showed a sinus rhythm heart rate was 70 GA QRS QT within normal limits is no acute ST segment of the elevation will give pain medication will give Ativan will monitor patient's symptoms. Patient's troponin was negative. Given she is 41 her heart score is still less than 3. Will have patient follow-up on an outpatient basis. More likely patient's pain improved after dose of Ativan, Dilaudid. More likely secondary to neck spasm. Will discharge patient home. Joint decision to have patient follow-up on an outpatient basis. Differential Diagnosis Differential Diagnoses: The differential diagnosis associated with the presentation includes torticollis, ACS, pneumonia, cervical radiculopathy Lab Data MDM Lab Attestation statement: I reviewed the patient's lab results. 07/31/22 03:15 07/31/22 03:15 Labs: Lab Results 07/31/22 07/31/22 07/31/22 Range/Units 03:15 03:15 03:15 WBC 10.0 (4.8-10.8) X10*3/uL RBC 4.47 (4.20-5.50) X10*6/uL Hgb 13.1 (12.0-16.0) g/dl Hct 39.4 (37.0-47.0) % MCV 88.1 (80.0-98.0) fL MCH 29.3 (27.0-33.0) pg MCHC 33.2 (31.0-35.0) g/dl RDW 14.6 (11.0-16.0) % Plt Count 322 (160-400) X10*3/uL MPV 9.6 (9.4-12.3) fL Immature Gran % (Auto) 0.6 H (0.0-0.4) % Neut % (Auto) 51.5 (45-73) % Lymph % (Auto) 36.4 (20-40) % [place] % (Auto) 9.1 (2-11) % Eos % (Auto) 2.0 (0-4) % Baso % (Auto) 0.4 (0-2) % Lymph # (Auto) 3.7 (1.2-4.9) X10*3/uL [place] # (Auto) 0.9 (0.1-1.2) X10*3/uL Eos # (Auto) 0.2 (0.0-0.4) X10*3/uL Baso # (Auto) 0.0 (0.0-0.2) X10*3/uL Abs Immat Gran (auto) 0.06 H (0.00-0.03) X10*3/uL Absolute Neuts (auto) 5.2 (2.0-8.3) x10*3/uL Absolute Nucleated RBC 0.000 (0.0-0.012) X10*3/uL Nucleated RBC % (auto) 0.0 (0.0-0.2) /100WBC Sodium 141 (135-145) mmol/L Potassium 3.5 D (3.3-5.1) mmol/L Chloride 106 (96-108) mmol/L Carbon Dioxide 19 L (22-29) mmol/L Anion Gap 20 (12-20) BUN 15 (9-16) mg/dL Creatinine 0.85 (0.5-1.4) mg/dL Estim Creat Clear Calc 81.6 Estimated GFR > 60 Random Glucose 137 H (60-115) mg/dL Calcium 9.2 (8.4-10.2) mg/dL Troponin I High Sens < 3.5 (<3.5-17.0) ng/L Beta HCG, Quant < 2 mIU/mL Discharge Plan Discharge Clinical Impression: Torticollis Patient Disposition: Home, Self-Care Instructions: Neck Pain (ED) Prescriptions: New cyclobenzaprine 10 mg tablet 10 mg PO TID PRN (Reason: pain) Qty: 14 0RF ibuprofen 400 mg tablet 400 mg PO Q6H PRN (Reason: pain) Qty: 20 0RF No Action lactulose 10 gram/15 mL (15 mL) solution 15 ml PO DAILY PRN (Reason: constipation) Qty: 600 0RF cyclobenzaprine 10 mg tablet 10 mg PO TID PRN (Reason: muscle spasm) Qty: 10 0RF amlodipine [Norvasc] 5 mg tablet 5 mg PO DAILY Qty: 30 0RF Referrals: [facility] [Primary Care Provider] - 08/02/22
[2022-07-31 03:19] LABS: MANUAL DIFF FLAG NO
[2022-07-31] MEDS: HYDROmorphone HCl 0.5 MG/0.5 ML SYRINGE IVPUSH (03:20)
[2022-07-31] MEDS: LORazepam 2 MG/ML VIAL 1 MG IVPUSH (03:20)
[2022-07-31 03:21] LABS: Basophils Percent Auto 0.4 % (0-2); Eosinophils Absolute Auto 0.2 X10*3/uL (0.0-0.4); Hematocrit 39.4 % (37.0-47.0); Hemoglobin 13.1 g/dl (12.0-16.0); Imm Gran Abs Auto 0.06 X10*3/uL (0.00-0.03); Imm Gran Pct Auto 0.6 % (0.0-0.4); Lymphocytes Absolute Auto 3.7 X10*3/uL (1.2-4.9); Lymphocytes Percent Auto 36.4 % (20-40); Mean Corpuscular HGB Conc 33.2 g/dl (31.0-35.0); Mean Corpuscular Hemoglobin 29.3 pg (27.0-33.0); Mean Corpuscular Volume 88.1 fL (80.0-98.0); Mean Platelet Volume 9.6 fL (9.4-12.3); Monocytes Absolute Auto 0.9 X10*3/uL (0.1-1.2); Monocytes Percent Auto 9.1 % (2-11); Neutrophils Absolute Auto 5.2 x10*3/uL (2.0-8.3); Neutrophils Percent Auto 51.5 % (45-73); Platelet Count 322 X10*3/uL (160-400); Red Blood Count 4.47 X10*6/uL (4.20-5.50); Red Cell Distribution Width 14.6 % (11.0-16.0)
[2022-07-31 03:38] LABS: Troponin-I High Sensitivity < 3.5 ng/L (<3.5-17.0)
[2022-07-31 03:49] LABS: Anion Gap 20 (12-20); Blood Urea Nitrogen 15 mg/dL (9-16); Calcium 9.2 mg/dL (8.4-10.2); Carbon Dioxide 19 mmol/L (22-29); Chloride 106 mmol/L (96-108); Creatinine Clr Calc Pharmacy 81.6; Estimated Glomerular Filt Rate > 60; Glucose Random 137 mg/dL (60-115); HCG Quantitative < 2 mIU/mL; Potassium 3.5 mmol/L (3.3-5.1); Sodium 141 mmol/L (135-145)
== END 2022-07-31 05:22 | disposition home or self-care (01) ==
PROVIDERS: Emergency Provider Emergency Medicine Emergency Medical Services
DX: M43.6 Torticollis (principal); R07.89 Other chest pain; Z79.899 Other long term (current) drug therapy
CPT/HCPCS: 36415; 80048; 84484; 84702; 85025; 93005; 96374; 96375; 99284; J1170; J2060

== ENCOUNTER 2022-10-01 13:07 | Emergency (ER) | payer MEDICAID, SELFPAY ==
--- NOTE | ~2022-10-01 | XR_ITS ---
EXAMINATION: XR CHEST CLINICAL INFORMATION: Chest pain COMPARISON: Previous chest x-ray April 2022 TECHNIQUE: Frontal view of the chest was obtained. FINDINGS: No significant abnormality is noted involving the heart, lungs, mediastinum, bony thorax or soft tissues. XR/XR chest 1V IMPRESSION: Unremarkable examination.
[2022-10-01 13:52] VITALS: BP 165/135; PULSE 101; RESP 18; TEMP 36.8; BMI 35.2
--- NOTE | 2022-10-01 13:57 | ED_ITS ---
HPI - General Adult General Chief complaint: General Medical <LORI Garcia - Last Filed: 10/01/22 20:44> Stated complaint: chest pain, L arm tingle, body pain,not eating <LORI Garcia - Last Filed: 10/01/22 20:44> Time Seen by Provider: 10/01/22 17:34 <LORI Garcia - Last Filed: 10/01/22 20:44> Source: patient <Shay Juan MD - Last Filed: 10/01/22 17:52> Mode of arrival: ambulatory <Shay Juan MD - Last Filed: 10/01/22 17:52> Limitations: no limitations <Shay Juan MD - Last Filed: 10/01/22 17:52> History of Present Illness HPI narrative: 41-year-old female with history of depression and anxiety presents with acute stress, anxiety and chest discomfort. Patient has been without her Effexor for 3 days. Since then she has been more tearful, difficulty sleeping, increasingly anxious. Her anxiety has resulted in chest pressure. In the upper chest. Does not radiate. The pressure is intermittent. Worse when she is stressed. Better when she is less stressed. She describes her symptoms as moderate to severe in nature. She was supposed to get her refill of her prescription recently but she has not yet received it. She is also on clonazepam which she is tapering off of in [place]a has 4 days left. She does not wish to increase that in the short term. Patient denies alcohol use. She does smoke marijuana at night to go to sleep but denies any cocaine or amphetamine use. Patient is not suicidal homicidal. Patient is not requesting an acute psychiatric consultation <Shay Juan MD - Last Filed: 10/01/22 17:52> Related Data Home medications: Previous Rx's Medication Instructions Recorded lactulose 10 gram/15 mL (15 mL) 15 ml PO DAILY PRN constipation 10/24/20 oral solution #600 mL amlodipine 5 mg tablet (Norvasc) 5 mg PO DAILY #30 tabs 05/15/22 cyclobenzaprine 10 mg tablet 10 mg PO TID PRN muscle spasm #10 05/15/22 tabs cyclobenzaprine 10 mg tablet 10 mg PO TID PRN pain #14 tabs 07/31/22 ibuprofen 400 mg tablet 400 mg PO Q6H PRN pain #20 tabs 07/31/22 hydroxyzine HCl 25 mg tablet 25 mg PO TID PRN For anxiety #10 10/01/22 tabs venlafaxine 100 mg tablet 100 mg PO BID #14 tabs 10/01/22 <LORI Garcia - Last Filed: 10/01/22 20:44> Allergies/adverse reactions: Allergies Allergy/AdvReac Type Severity Reaction Status Date / Time acetaminophen [Vicodin] Allergy Unknown heart Verified 12/11/17 00:00 palpitations hydrocodone [From VICODIN] Allergy Unknown TACHYCARDIA Unverified 03/10/20 15:19 <LORI Garcia - Last Filed: 10/01/22 20:44> [facility]LY [facility] Past Medical History Medical History: Medical History Anxiety <LORI Garcia - Last Filed: 10/01/22 20:44> Social History Social History: Social History Alcohol intake: current Alcohol intake frequency: holidays/special occasions only Alcohol type: beer Substance Use Type: Marijuana Advance Directives: No Advance Directives Information Provided: No <LORI Garcia - Last Filed: 10/01/22 20:44> Physical Exam ED Vital Signs: Vital Signs - 24 hr 10/01/22 13:52 10/01/22 17:31 Temperature 98.3 F Pulse Rate 101 H 95 Respiratory Rate 18 16 Blood Pressure 165/135 H 104/84 Pulse Oximetry 98 Oxygen Delivery Method Room Air Room Air BMI result Body Mass Index 35.2 <LORI Garcia - Last Filed: 10/01/22 20:44> Vital Signs - 24 hr 10/01/22 13:52 10/01/22 17:31 Temperature 98.3 F Pulse Rate 101 H 95 Respiratory Rate 18 16 Blood Pressure 165/135 H 104/84 Pulse Oximetry 98 Oxygen Delivery Method Room Air Room Air BMI result Body Mass Index 35.2 <Shay Juan MD - Last Filed: 10/01/22 17:52> GEN: Well developed, no acute distress, alert, oriented, tearful HEENT: Normocephalic, atraumatic, normal external ears, nose appears normal, no oropharyngeal edema or exudates Eyes: Normal to appearance Neck: Supple, no lymphadenopathy Respiratory: Talks in complete sentences, no respiratory distress, clear to auscultation bilaterally Cardiovascular: Regular rate and rhythm, no murmurs rubs or gallops Abdomen: Soft, nontender, nondistended, no guarding, no rebound Back: No CVA tenderness Extremities: No clubbing cyanosis or edema Neurologic: No focal neurologic deficits, cranial nerves 2-12 intact, strength is 5/5 bilaterally, gait normal Skin: No rash Psych: Acutely anxious appearing <Shay Juan MD - Last Filed: 10/01/22 17:52> Course Course Course Narrative: RME: 41 yold female presents to the ED for depression. patient has been withouth her effexor for 4 days and has been crying and feelling sad. patient is not SI or homicidal. Patient wants prescription for effexor. Second complatin is left sided chest pain for one month with no SOB/pleurisy. labs/EKG/and Chest xray. patient HTN elevated due her cyring in triage. <LORI Garcia - Last Filed: 10/01/22 20:44> Reevaluation(s) Reevaluation #1: 41-year-old female presents with chest pain and anxiety. At this time her workup is complete. Her EKG is nonischemic appearing. She is without her psychiatric medications for 3 days now. I believe her symptoms are mostly related to an acute stress reaction secondary to medication withdrawal. I will refill 1 weeks worth of her Effexor. I will prescribe Vistaril instead of clonazepam to assist with her acute anxiety to avoid up titrating her clonazepam as she is trying to taper off at this time. She does not warrant an acute psychiatric evaluation. She can be discharged at this time. <Shay Juan MD - Last Filed: 10/01/22 17:52> Time: 17:47 <Shay Juan MD - Last Filed: 10/01/22 17:52> Medical Decision Making Medical Decision Making MDM Narrative: 41-year-old female presents with acute anxiety, stress, chest pain. Symptoms appear to be due to acute medication withdrawals. However, rule out acute coronary syndrome, cardiac ischemia, angina. Doubt PE or DVT. Her PERC score is 0. Patient has no lower extremity edema. Her examination is unremarkable. Will obtain an EKG, laboratory analysis, chest x-ray. <Shay Juan MD - Last Filed: 10/01/22 17:52> Differential Diagnosis Differential Diagnoses: The differential diagnosis associated with the presentation includes (Stress, anxiety, panic, acute coronary syndrome, ischemia, angina, atypical chest pain) <Shay Juan MD - Last Filed: 10/01/22 17:52> Admission/Observation Consideration of admission/observation: Escalation of care including admission/observation considered <Shay Juan MD - Last Filed: 10/01/22 17:52> Lab Data MDM Lab Attestation statement: I reviewed the patient's lab results. <Shay Juan MD - Last Filed: 10/01/22 17:52> Result Diagrams: 10/01/22 14:27 10/01/22 14:27 <LORI Garcia - Last Filed: 10/01/22 20:44> Labs: Lab Results 10/01/22 10/01/22 10/01/22 Range/Units 14:27 14:27 14:27 WBC 9.1 (4.8-10.8) X10*3/uL RBC 4.75 (4.20-5.50) X10*6/uL Hgb 14.0 (12.0-16.0) g/dl Hct 43.3 (37.0-47.0) % MCV 91.2 (80.0-98.0) fL MCH 29.5 (27.0-33.0) pg MCHC 32.3 (31.0-35.0) g/dl RDW 14.4 (11.0-16.0) % Plt Count 321 (160-400) X10*3/uL MPV 9.6 (9.4-12.3) fL Immature Gran % (Auto) 0.7 H (0.0-0.4) % Neut % (Auto) 64.0 (45-73) % Lymph % (Auto) 25.5 (20-40) % [place] % (Auto) 8.3 (2-11) % Eos % (Auto) 1.2 (0-4) % Baso % (Auto) 0.3 (0-2) % Lymph # (Auto) 2.3 (1.2-4.9) X10*3/uL [place] # (Auto) 0.8 (0.1-1.2) X10*3/uL Eos # (Auto) 0.1 (0.0-0.4) X10*3/uL Baso # (Auto) 0.0 (0.0-0.2) X10*3/uL Abs Immat Gran (auto) 0.06 H (0.00-0.03) X10*3/uL Absolute Neuts (auto) 5.8 (2.0-8.3) x10*3/uL Absolute Nucleated RBC 0.000 (0.0-0.012) X10*3/uL Nucleated RBC % (auto) 0.0 (0.0-0.2) /100WBC PT 10.4 (10.0-13.1) SEC INR 0.9 (0.9-1.1) APTT 30.2 (26.0-36.4) SEC Sodium 141 (135-145) mmol/L Potassium 4.2 (3.3-5.1) mmol/L Chloride 108 (96-108) mmol/L Carbon Dioxide 26 (22-29) mmol/L Anion Gap 11 L (12-20) BUN 11 (9-16) mg/dL Creatinine 1.00 (0.5-1.4) mg/dL Estim Creat Clear Calc 69.4 Estimated GFR > 60 Random Glucose 76 (60-115) mg/dL Calcium 9.6 (8.4-10.2) mg/dL Total Bilirubin 0.4 (0.0-1.0) mg/dL AST 13 (5-31) U/L ALT 13 (0-31) U/L Alkaline Phosphatase 68 (39-117) U/L Troponin I High Sens (<3.5-17.0) ng/L B-Natriuretic Peptide (<100) pg/mL Total Protein 7.3 (6.5-8.0) g/dL Albumin 4.5 (3.5-5.0) g/dL 10/01/22 10/01/22 Range/Units 14:27 14:27 WBC (4.8-10.8) X10*3/uL RBC (4.20-5.50) X10*6/uL Hgb (12.0-16.0) g/dl Hct (37.0-47.0) % MCV (80.0-98.0) fL MCH (27.0-33.0) pg MCHC (31.0-35.0) g/dl RDW (11.0-16.0) % Plt Count (160-400) X10*3/uL MPV (9.4-12.3) fL Immature Gran % (Auto) (0.0-0.4) % Neut % (Auto) (45-73) % Lymph % (Auto) (20-40) % [place] % (Auto) (2-11) % Eos % (Auto) (0-4) % Baso % (Auto) (0-2) % Lymph # (Auto) (1.2-4.9) X10*3/uL [place] # (Auto) (0.1-1.2) X10*3/uL Eos # (Auto) (0.0-0.4) X10*3/uL Baso # (Auto) (0.0-0.2) X10*3/uL Abs Immat Gran (auto) (0.00-0.03) X10*3/uL Absolute Neuts (auto) (2.0-8.3) x10*3/uL Absolute Nucleated RBC (0.0-0.012) X10*3/uL Nucleated RBC % (auto) (0.0-0.2) /100WBC PT (10.0-13.1) SEC INR (0.9-1.1) APTT (26.0-36.4) SEC Sodium (135-145) mmol/L Potassium (3.3-5.1) mmol/L Chloride (96-108) mmol/L Carbon Dioxide (22-29) mmol/L Anion Gap (12-20) BUN (9-16) mg/dL Creatinine (0.5-1.4) mg/dL Estim Creat Clear Calc Estimated GFR Random Glucose (60-115) mg/dL Calcium (8.4-10.2) mg/dL Total Bilirubin (0.0-1.0) mg/dL AST (5-31) U/L ALT (0-31) U/L Alkaline Phosphatase (39-117) U/L Troponin I High Sens < 2.7 (<3.5-17.0) ng/L B-Natriuretic Peptide 12 (<100) pg/mL Total Protein (6.5-8.0) g/dL Albumin (3.5-5.0) g/dL <LORI Garcia - Last Filed: 10/01/22 20:44> Lab Results 10/01/22 10/01/22 10/01/22 Range/Units 14:27 14:27 14:27 WBC 9.1 (4.8-10.8) X10*3/uL RBC 4.75 (4.20-5.50) X10*6/uL Hgb 14.0 (12.0-16.0) g/dl Hct 43.3 (37.0-47.0) % MCV 91.2 (80.0-98.0) fL MCH 29.5 (27.0-33.0) pg MCHC 32.3 (31.0-35.0) g/dl RDW 14.4 (11.0-16.0) % Plt Count 321 (160-400) X10*3/uL MPV 9.6 (9.4-12.3) fL Immature Gran % (Auto) 0.7 H (0.0-0.4) % Neut % (Auto) 64.0 (45-73) % Lymph % (Auto) 25.5 (20-40) % [place] % (Auto) 8.3 (2-11) % Eos % (Auto) 1.2 (0-4) % Baso % (Auto) 0.3 (0-2) % Lymph # (Auto) 2.3 (1.2-4.9) X10*3/uL [place] # (Auto) 0.8 (0.1-1.2) X10*3/uL Eos # (Auto) 0.1 (0.0-0.4) X10*3/uL Baso # (Auto) 0.0 (0.0-0.2) X10*3/uL Abs Immat Gran (auto) 0.06 H (0.00-0.03) X10*3/uL Absolute Neuts (auto) 5.8 (2.0-8.3) x10*3/uL Absolute Nucleated RBC 0.000 (0.0-0.012) X10*3/uL Nucleated RBC % (auto) 0.0 (0.0-0.2) /100WBC PT 10.4 (10.0-13.1) SEC INR 0.9 (0.9-1.1) APTT 30.2 (26.0-36.4) SEC Sodium 141 (135-145) mmol/L Potassium 4.2 (3.3-5.1) mmol/L Chloride 108 (96-108) mmol/L Carbon Dioxide 26 (22-29) mmol/L Anion Gap 11 L (12-20) BUN 11 (9-16) mg/dL Creatinine 1.00 (0.5-1.4) mg/dL Estim Creat Clear Calc 69.4 Estimated GFR > 60 Random Glucose 76 (60-115) mg/dL Calcium 9.6 (8.4-10.2) mg/dL Total Bilirubin 0.4 (0.0-1.0) mg/dL AST 13 (5-31) U/L ALT 13 (0-31) U/L Alkaline Phosphatase 68 (39-117) U/L Troponin I High Sens (<3.5-17.0) ng/L B-Natriuretic Peptide (<100) pg/mL Total Protein 7.3 (6.5-8.0) g/dL Albumin 4.5 (3.5-5.0) g/dL 10/01/22 10/01/22 Range/Units 14:27 14:27 WBC (4.8-10.8) X10*3/uL RBC (4.20-5.50) X10*6/uL Hgb (12.0-16.0) g/dl Hct (37.0-47.0) % MCV (80.0-98.0) fL MCH (27.0-33.0) pg MCHC (31.0-35.0) g/dl RDW (11.0-16.0) % Plt Count (160-400) X10*3/uL MPV (9.4-12.3) fL Immature Gran % (Auto) (0.0-0.4) % Neut % (Auto) (45-73) % Lymph % (Auto) (20-40) % [place] % (Auto) (2-11) % Eos % (Auto) (0-4) % Baso % (Auto) (0-2) % Lymph # (Auto) (1.2-4.9) X10*3/uL [place] # (Auto) (0.1-1.2) X10*3/uL Eos # (Auto) (0.0-0.4) X10*3/uL Baso # (Auto) (0.0-0.2) X10*3/uL Abs Immat Gran (auto) (0.00-0.03) X10*3/uL Absolute Neuts (auto) (2.0-8.3) x10*3/uL Absolute Nucleated RBC (0.0-0.012) X10*3/uL Nucleated RBC % (auto) (0.0-0.2) /100WBC PT (10.0-13.1) SEC INR (0.9-1.1) APTT (26.0-36.4) SEC Sodium (135-145) mmol/L Potassium (3.3-5.1) mmol/L Chloride (96-108) mmol/L Carbon Dioxide (22-29) mmol/L Anion Gap (12-20) BUN (9-16) mg/dL Creatinine (0.5-1.4) mg/dL Estim Creat Clear Calc Estimated GFR Random Glucose (60-115) mg/dL Calcium (8.4-10.2) mg/dL Total Bilirubin (0.0-1.0) mg/dL AST (5-31) U/L ALT (0-31) U/L Alkaline Phosphatase (39-117) U/L Troponin I High Sens < 2.7 (<3.5-17.0) ng/L B-Natriuretic Peptide 12 (<100) pg/mL Total Protein (6.5-8.0) g/dL Albumin (3.5-5.0) g/dL <Shay Juan MD - Last Filed: 10/01/22 17:52> Independent Interpretation I performed an independent interpretation of an: EKG and Plain X-Ray (Chest: No acute cardiopulmonary disease) <Shay Juan MD - Last Filed: 10/01/22 17:52> Interpretation: Normal sinus rhythm heart rate 83, normal intervals, no acute ST elevations or depressions <Shay Juan MD - Last Filed: 10/01/22 17:52> Tests considered The following testing was considered but not selected: Ultrasound, CT scan <Shay Juan MD - Last Filed: 10/01/22 17:52> Prescription Management I considered prescription management with: Pain Medication <Shay Juan MD - Last Filed: 10/01/22 17:52> Discharge Plan Discharge Clinical Impression: Anxiety, Stress reaction, Medication withdrawal, Atypical chest pain <LORI Garcia - Last Filed: 10/01/22 20:44> Patient Disposition: Home, Self-Care <LORI Garcia Last Filed: 10/01/22 20:44> Instructions: Stress (ED), Panic Disorder (ED), Noncardiac Chest Pain (ED), Anxiety (ED) <LORI Garcia - Last Filed: 10/01/22 20:44> Prescriptions: New hydroxyzine HCl 25 mg tablet 25 mg PO TID PRN (Reason: For anxiety) Qty: 10 0RF venlafaxine 100 mg tablet 100 mg PO BID Qty: 14 0RF No Action lactulose 10 gram/15 mL (15 mL) solution 15 ml PO DAILY PRN (Reason: constipation) Qty: 600 0RF cyclobenzaprine 10 mg tablet 10 mg PO TID PRN (Reason: pain) Qty: 14 0RF ibuprofen 400 mg tablet 400 mg PO Q6H PRN (Reason: pain) Qty: 20 0RF cyclobenzaprine 10 mg tablet 10 mg PO TID PRN (Reason: muscle spasm) Qty: 10 0RF amlodipine [Norvasc] 5 mg tablet 5 mg PO DAILY Qty: 30 0RF <LORI Garcia - Last Filed: 10/01/22 20:44> Referrals: Physician,Unknown J [Primary Care Provider] - <LORI Garcia - Last Filed: 10/01/22 20:44> Interventions: ED Discharge Assessment Last Done: 10/01/22 18:11 <LORI Garcia Last Filed: 10/01/22 20:44> Discharge Date/Time: 10/01/22 18:11 <LORI Garcia - Last Filed: 10/01/22 20:44>
--- NOTE | 2022-10-01 13:58 | ECG_ITS ---
Test Reason : l side chest pain Blood Pressure : / mmHG Vent. Rate : 083 BPM Atrial Rate : 083 BPM P-R Int : 138 ms QRS Dur : 076 ms QT Int : 386 ms P-R-T Axes : 061 065 033 degrees QTc Int : 453 ms Normal sinus rhythm Normal ECG When compared with ECG of 31-JUL-2022 02:54, No significant change was found Referred By: Hermann Sierra Electronically Signed By:KERON EVANS MD
[2022-10-01 14:33] LABS: MANUAL DIFF FLAG NO
[2022-10-01 14:36] LABS: Basophils Percent Auto 0.3 % (0-2); Eosinophils Absolute Auto 0.1 X10*3/uL (0.0-0.4); Eosinophils Percent Auto 1.2 % (0-4); Hematocrit 43.3 % (37.0-47.0); Imm Gran Abs Auto 0.06 X10*3/uL (0.00-0.03); Imm Gran Pct Auto 0.7 % (0.0-0.4); Lymphocytes Absolute Auto 2.3 X10*3/uL (1.2-4.9); Lymphocytes Percent Auto 25.5 % (20-40); Mean Corpuscular HGB Conc 32.3 g/dl (31.0-35.0); Mean Corpuscular Hemoglobin 29.5 pg (27.0-33.0); Mean Corpuscular Volume 91.2 fL (80.0-98.0); Mean Platelet Volume 9.6 fL (9.4-12.3); Monocytes Absolute Auto 0.8 X10*3/uL (0.1-1.2); Monocytes Percent Auto 8.3 % (2-11); Neutrophils Absolute Auto 5.8 x10*3/uL (2.0-8.3); Platelet Count 321 X10*3/uL (160-400); Red Blood Count 4.75 X10*6/uL (4.20-5.50); Red Cell Distribution Width 14.4 % (11.0-16.0); White Blood Count 9.1 X10*3/uL (4.8-10.8)
[2022-10-01 14:42] LABS: INTERNATIONAL NORM RATIO 0.9 (0.9-1.1); Prothrombin Time 10.4 SEC (10.0-13.1)
[2022-10-01 14:45] LABS: Partial Thromboplastin Time 30.2 SEC (26.0-36.4)
[2022-10-01 14:48] LABS: Alanine Aminotransferase 13 U/L (0-31); Albumin Level 4.5 g/dL (3.5-5.0); Alkaline Phosphatase 68 U/L (39-117); Anion Gap 11 (12-20); Aspartate Amino Transferase 13 U/L (5-31); Bilirubin Total 0.4 mg/dL (0.0-1.0); Blood Urea Nitrogen 11 mg/dL (9-16); Calcium 9.6 mg/dL (8.4-10.2); Carbon Dioxide 26 mmol/L (22-29); Chloride 108 mmol/L (96-108); Creatinine Clr Calc Pharmacy 69.4; Estimated Glomerular Filt Rate > 60; Glucose Random 76 mg/dL (60-115); Potassium 4.2 mmol/L (3.3-5.1); Sodium 141 mmol/L (135-145); Total Protein 7.3 g/dL (6.5-8.0)
[2022-10-01 14:54] LABS: B Type Natriuretic Peptide 12 pg/mL (<100)
[2022-10-01 14:55] LABS: Troponin-I High Sensitivity < 2.7 ng/L (<3.5-17.0)
[2022-10-01 17:31] VITALS: BP 104/84; PULSE 95; RESP 16; O2SAT 98
== END 2022-10-01 18:11 | disposition home or self-care (01) ==
PROVIDERS: Physician Assistant; Emergency Provider Emergency Medicine
DX: R07.89 Other chest pain (principal); F41.1 Generalized anxiety disorder; F43.0 Acute stress reaction; R06.02 Shortness of breath; F15.23 Other stimulant dependence with withdrawal; Z79.899 Other long term (current) drug therapy; Z91.148 Patient's other noncompliance with medication regimen for other reason
CPT/HCPCS: 36415; 71045; 80053; 83880; 84484; 85025; 85610; 85730; 93005; 99283; 99284

== ENCOUNTER 2022-10-01 21:30 | Emergency (ER) | payer MEDICAID, SELFPAY ==
[2022-10-01 21:36] VITALS: BP 133/82; BP 148/96; PULSE 110; PULSE 98; RESP 20; TEMP 36.8; O2SAT 100; O2SAT 98; BMI 35.2
--- NOTE | 2022-10-01 23:04 | ED.GENADULT ---
HPI - General Adult General Chief complaint: Allergic Reaction Stated complaint: ? Med Reaction Time Seen by Provider: 10/01/22 21:52 Source: patient Mode of arrival: ambulatory History of Present Illness HPI narrative: 41-year-old female who was evaluated earlier today returns with complaints about a funny sensation after taking the hydroxyzine which was prescribed to her for anxiety symptoms. Patient is currently on a benzodiazepine taper with her outpatient provider. She states that she has tolerated Benadryl previously but when she took the hydroxyzine she began to feel a burning and heat sensation this started at the bottom of her feet in travel up through her body. 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 She denies any facial/tongue/lip swelling and denies any difficulty breathing or swallowing. Related Data Previous Rx's Medication Instructions Recorded lactulose 10 gram/15 mL (15 mL) 15 ml PO DAILY PRN constipation 10/24/20 oral solution #600 mL amlodipine 5 mg tablet (Norvasc) 5 mg PO DAILY #30 tabs 05/15/22 cyclobenzaprine 10 mg tablet 10 mg PO TID PRN muscle spasm #10 05/15/22 tabs cyclobenzaprine 10 mg tablet 10 mg PO TID PRN pain #14 tabs 07/31/22 ibuprofen 400 mg tablet 400 mg PO Q6H PRN pain #20 tabs 07/31/22 hydroxyzine HCl 25 mg tablet 25 mg PO TID PRN For anxiety #10 10/01/22 tabs venlafaxine 100 mg tablet 100 mg PO BID #14 tabs 10/01/22 Allergies Allergy/AdvReac Type Severity Reaction Status Date / Time acetaminophen [Vicodin] Allergy Unknown heart Verified 12/11/17 00:00 palpitations hydrocodone [From VICODIN] Allergy Unknown TACHYCARDIA Unverified 03/10/20 15:19 Review of Systems Review of Systems: Pertinent positives and negatives as stated in [facility] Past Medical History Source: nursing notes reviewed Medical History Anxiety Social History Social History Alcohol intake: current Alcohol intake frequency: holidays/special occasions only Alcohol type: beer Substance Use Type: Marijuana Advance Directives: No Advance Directives Information Provided: No Physical Exam ED Vital Signs: Vital Signs - 24 hr 10/01/22 21:36 10/01/22 23:16 10/01/22 23:18 Temperature 98.3 F Pulse Rate 110 H 98 87 Respiratory Rate 20 16 16 Blood Pressure 148/96 H 175/73 H 138/93 H Pulse Oximetry 100 98 97 Oxygen Delivery Method Room Air Room Air Room Air BMI result Body Mass Index 35.2 VITAL SIGNS: Reviewed. GENERAL: Well developed, well nourished, anxious HEAD: Normocephalic/atraumatic EYES: PERRLA, EOMI EARS: Ext canals without abnormality NOSE: Nares patent bilateral OROPHARYNX: no oral lesions noted, posterior pharynx clear, no lip/tongue/facial swelling NECK: Supple, no adenopathy LUNGS: Normal breath sounds. No adventitious sounds or accessory muscle use. SpO2<100> CARDIOVASCULAR: Regular rate and rhythm without noted murmurs ABDOMEN: Soft, non-tender, non-distended with bowel sounds. MUSCULOSKELETAL: No tenderness, deformities, or effusions noted on gross inspection. EXTREMITIES: No cyanosis, clubbing or edema. SKIN: Inspection of the skin reveals no rashes NEUROLOGIC: Alert and oriented x 4. Strength and sensation to light touch were grossly intact x 4. Medications Administered Discontinued Medications Generic Name Dose Route Start Last Admin Trade Name Freq PRN Reason Stop Dose Admin Ibuprofen 400 mg 10/01/22 23:05 10/01/22 23:23 Ibuprofen 400 Mg Tablet PO 10/01/22 23:06 400 mg ONCE ONE Administration Medical Decision Making Medical Decision Making MDM Narrative: 41-year-old female who appears to be experiencing anxiety reaction secondary to the sensation that she has experienced after taking hydroxyzine. There is no evidence to suggest anaphylaxis or angioedema. 2316: On re-evaluation patient states she is feeling much better and is ready be discharged home in completely stable condition. Differential Diagnosis Please see the discussion above Lab Data I reviewed the lab work which was performed earlier. External Record Review External record reviewed: Outpatient record and Prior outpatient labs Discharge Plan Discharge Clinical Impression: Medication reaction Patient Disposition: Home, Self-Care Additional Instructions: Avoid hydroxyzine Resume all other home medications. Return to the ER for any worsening symptoms. Prescriptions: No Action lactulose 10 gram/15 mL (15 mL) solution 15 ml PO DAILY PRN (Reason: constipation) Qty: 600 0RF cyclobenzaprine 10 mg tablet 10 mg PO TID PRN (Reason: pain) Qty: 14 0RF ibuprofen 400 mg tablet 400 mg PO Q6H PRN (Reason: pain) Qty: 20 0RF cyclobenzaprine 10 mg tablet 10 mg PO TID PRN (Reason: muscle spasm) Qty: 10 0RF amlodipine [Norvasc] 5 mg tablet 5 mg PO DAILY Qty: 30 0RF hydroxyzine HCl 25 mg tablet 25 mg PO TID PRN (Reason: For anxiety) Qty: 10 0RF venlafaxine 100 mg tablet 100 mg PO BID Qty: 14 0RF Referrals: [facility] [Primary Care Provider] -
[2022-10-01 23:16] VITALS: BP 175/73; PULSE 98; RESP 16; O2SAT 98
[2022-10-01 23:18] VITALS: BP 138/93; PULSE 87; RESP 16; O2SAT 97
[2022-10-01] MEDS: Ibuprofen 400 MG TABLET PO (23:23)
--- NOTE | 2022-10-02 00:24 | MHC.EDTECH ---
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 Patient asked for dale dee,Then I said let me tell your nurse. I then told Danielle and when patient heard me say icechips .Patient then yelled I don't want dame icechips I want gingerale why the F...K are you in my business . Then Patient started to yell I want to F...ing leave .I walked away and charge nurse heard yelling and came to speak with patient.
== END 2022-10-01 23:49 | disposition home or self-care (01) ==
PROVIDERS: Emergency Provider Student in an Organized Health Care Education/Training Program
DX: L50.0 Allergic urticaria (principal)
CPT/HCPCS: 99283; 99284

== ENCOUNTER 2022-12-10 16:43 | Emergency (ER) | payer MEDICAID, SELFPAY ==
[2022-12-10 16:45] VITALS: BP 128/77; BP 132/107; PULSE 87; PULSE 90; RESP 15; TEMP 36.8; O2SAT 98; O2SAT 99; BMI 37.9
--- NOTE | 2022-12-10 19:01 | ED_ITS ---
HPI - General Adult General Chief complaint: General Medical Stated complaint: R ARM/R NECK/HEAD PAIN X'S 3 DAYS PER EMS Time Seen by Provider: 12/10/22 17:16 Source: patient Mode of arrival: EMS Limitations: no limitations History of Present Illness HPI narrative: Comes to the emergency room via ambulance complaining of anxiety. Patient states that it has been 2 weeks since she had Klonopin, patient trying to wean herself off. Patient denies SI or HI. Patient requesting a care team consult for information to start with a therapist/psychiatrist to get her psych medications started. Related Data Previous Rx's Medication Instructions Recorded lactulose 10 gram/15 mL (15 mL) 15 ml PO DAILY PRN constipation 10/24/20 oral solution #600 mL amlodipine 5 mg tablet (Norvasc) 5 mg PO DAILY #30 tabs 05/15/22 cyclobenzaprine 10 mg tablet 10 mg PO TID PRN muscle spasm #10 05/15/22 tabs cyclobenzaprine 10 mg tablet 10 mg PO TID PRN pain #14 tabs 07/31/22 ibuprofen 400 mg tablet 400 mg PO Q6H PRN pain #20 tabs 07/31/22 hydroxyzine HCl 25 mg tablet 25 mg PO TID PRN For anxiety #10 10/01/22 tabs venlafaxine 100 mg tablet 100 mg PO BID #14 tabs 10/01/22 Allergies Allergy/AdvReac Type Severity Reaction Status Date / Time acetaminophen [Vicodin] Allergy Unknown heart Verified 12/11/17 00:00 palpitations hydrocodone [From VICODIN] Allergy Unknown TACHYCARDIA Unverified 03/10/20 15:19 Review of Systems Review of Systems: Constitutional : No Weight loss, No Fever, No Chills, No Night Sweats, No Fatigue, No Malaise ENT/Mouth : No Hearing loss, No Ear Pain, No Nasal Congestion, No Sinus Pain, No Hoarseness, No sore throat, No Rhinorrhea, No Swallowing Difficulty Eyes: No Eye Pain, No Swelling, No Redness, No Foreign Body, No Discharge, No Vision Changes Cardiovascular : No Chest Pain, No SOB, No Dyspnea on Exertion, No Orthopnea, No Edema, No Palpitations Respiratory : No Cough, No Sputum, No Wheezing, No Smoke Exposure, No Dyspnea Gastrointestinal : No Nausea, No Vomiting, No Diarrhea, No Constipation, No abdominal Pain, No Hematochezia, No Melena Genitourinary : no irregular bleeding, No Dysuria, No Urinary Frequency, No Hematuria, No Urinary Incontinence, No Urgency, No Flank Pain, No Urinary Flow Changes, No Hesitancy Musculoskeletal : No joint pain, No Myalgias, No Joint Swelling Skin : No Skin Lesions, No rash Neuro : No Weakness, No Numbness, No Paresthesias, No Loss of Consciousness, No Dizziness, No Headache Psych : Complaining of anxiety and depression, denies SI or HI Heme/Lymph: No Bruising, No Bleeding,No Lymphadenopathy Endocrine : No Polyuria, No Polydipsia, No Temperature Intolerance [facility] Past Medical History Medical History Anxiety Social History Social History Alcohol intake: current Alcohol intake frequency: holidays/special occasions only Alcohol type: beer Substance Use Type: Marijuana Advance Directives: No Advance Directives Information Provided: No Physical Exam ED Vital Signs: Vital Signs - 24 hr 12/10/22 16:45 12/10/22 19:20 Temperature 98.2 F 97.1 F Pulse Rate 87 64 Respiratory Rate 15 18 Blood Pressure 132/107 H 126/80 Pulse Oximetry 98 97 Oxygen Delivery Method Room Air Room Air BMI result Body Mass Index 37.9 Const Other: Appearance: Alert. Oriented X3. No acute distress. Eyes: Pupils equal, round and reactive to light. ENT: Pharynx normal. Neck: Normal inspection. Neck supple. No lymph nodes noted. No crepitus CVS: Normal heart rate and rhythm. Pulses normal. Normal S1 and S2 Respiratory: No respiratory distress. Breath sounds normal. No Wheezing. No rales Abdomen: Soft and nontender. No rigidity. No distention. Skin: Skin warm and dry. Normal skin color. Normal skin turgor. Extremities: No lower extremity edema. No Lacerations. No Rash Neuro: Oriented X 3. No motor deficit. No sensory deficit. Moving all extremities. No slurred speech. CN 2 through 12 grossly intact Psych: calm, cooperative, anxious, crying Course Course Course Narrative: -it has been 2 weeks since the patient stop taking Klonopin. -at this time, no signs of withdrawal -labs pending -care team consult pending -patient is now on a Section 12, denies SI or HI -physician observation started at 19:00 Medical Decision Making Medical Decision Making MDM Narrative: -patient was seen by the care team, they will help the patient in touch with [facility] and get a therapist and the medication prescriber in a few days. -patient agreeable with plan, refer discharge. -no SI no HI Lab Data MDM Lab Attestation statement: I reviewed the patient's lab results. 12/10/22 19:06 12/10/22 19:06 Labs: Lab Results 12/10/22 12/10/22 12/10/22 Range/Units 19:06 19:06 19:06 WBC 10.1 (4.8-10.8) X10*3/uL RBC 4.64 (4.20-5.50) X10*6/uL Hgb 14.0 (12.0-16.0) g/dl Hct 41.0 (37.0-47.0) % MCV 88.4 (80.0-98.0) fL MCH 30.2 (27.0-33.0) pg MCHC 34.1 (31.0-35.0) g/dl RDW 14.3 (11.0-16.0) % Plt Count 334 (160-400) X10*3/uL MPV 10.0 (9.4-12.3) fL Immature Gran % (Auto) 0.7 H (0.0-0.4) % Neut % (Auto) 68.2 (45-73) % Lymph % (Auto) 21.8 (20-40) % [place] % (Auto) 8.1 (2-11) % Eos % (Auto) 0.8 (0-4) % Baso % (Auto) 0.4 (0-2) % Lymph # (Auto) 2.2 (1.2-4.9) X10*3/uL [place] # (Auto) 0.8 (0.1-1.2) X10*3/uL Eos # (Auto) 0.1 (0.0-0.4) X10*3/uL Baso # (Auto) 0.0 (0.0-0.2) X10*3/uL Abs Immat Gran (auto) 0.07 H (0.00-0.03) X10*3/uL Absolute Neuts (auto) 6.9 (2.0-8.3) x10*3/uL Absolute Nucleated RBC 0.000 (0.0-0.012) X10*3/uL Nucleated RBC % (auto) 0.0 (0.0-0.2) /100WBC Sodium 139 (135-145) mmol/L Potassium 3.5 (3.3-5.1) mmol/L Chloride 106 (96-108) mmol/L Carbon Dioxide 20 L (22-29) mmol/L Anion Gap 17 (12-20) BUN 7 L (9-16) mg/dL Creatinine 0.72 (0.5-1.4) mg/dL Estim Creat Clear Calc 99.5 Estimated GFR > 60 Random Glucose 90 (60-115) mg/dL Calcium 10.5 H D (8.4-10.2) mg/dL Total Bilirubin 0.5 (0.0-1.0) mg/dL Direct Bilirubin 0.1 (0.0-0.5) mg/dL AST 12 (5-31) U/L ALT 11 (0-31) U/L Alkaline Phosphatase 72 (39-117) U/L Total Protein 7.5 (6.5-8.0) g/dL Albumin 4.3 (3.5-5.0) g/dL Urine Color Urine Appearance Urine pH (5.0-9.0) Ur Specific [place] (1.005-1.025) Urine Protein (Neg-Trace) mg/dL Urine Glucose (UA) (Negative) mg/dL Urine Ketones (Negative) mg/dL Urine Blood (Negative) Urine Nitrite (Negative) Ur Leukocyte Esterase (Negative) Urine RBC (0-2) /HPF Urine WBC (0-5) /HPF Ur Squamous Epith Cells (0-2) /HPF Urine Bacteria (None Seen) Hyaline Casts (0-2) /LPF Urine Opiates Screen (Not Detect) Urine Fentanyl Screen (Not Detect) Ur Barbiturates Screen (Not Detect) Ur Phencyclidine Scrn (Not Detect) Ur Amphetamines Screen (Not Detect) U Benzodiazepines Scrn (Not Detect) Urine Cocaine Screen (Not Detect) U Marijuana (THC) Screen (Not Detect) Ethyl Alcohol < 10 mg/dL 12/10/22 12/10/22 Range/Units 19:22 19:22 WBC (4.8-10.8) X10*3/uL RBC (4.20-5.50) X10*6/uL Hgb (12.0-16.0) g/dl Hct (37.0-47.0) % MCV (80.0-98.0) fL MCH (27.0-33.0) pg MCHC (31.0-35.0) g/dl RDW (11.0-16.0) % Plt Count (160-400) X10*3/uL MPV (9.4-12.3) fL Immature Gran % (Auto) (0.0-0.4) % Neut % (Auto) (45-73) % Lymph % (Auto) (20-40) % [place] % (Auto) (2-11) % Eos % (Auto) (0-4) % Baso % (Auto) (0-2) % Lymph # (Auto) (1.2-4.9) X10*3/uL [place] # (Auto) (0.1-1.2) X10*3/uL Eos # (Auto) (0.0-0.4) X10*3/uL Baso # (Auto) (0.0-0.2) X10*3/uL Abs Immat Gran (auto) (0.00-0.03) X10*3/uL Absolute Neuts (auto) (2.0-8.3) x10*3/uL Absolute Nucleated RBC (0.0-0.012) X10*3/uL Nucleated RBC % (auto) (0.0-0.2) /100WBC Sodium (135-145) mmol/L Potassium (3.3-5.1) mmol/L Chloride (96-108) mmol/L Carbon Dioxide (22-29) mmol/L Anion Gap (12-20) BUN (9-16) mg/dL Creatinine (0.5-1.4) mg/dL Estim Creat Clear Calc Estimated GFR Random Glucose (60-115) mg/dL Calcium (8.4-10.2) mg/dL Total Bilirubin (0.0-1.0) mg/dL Direct Bilirubin (0.0-0.5) mg/dL AST (5-31) U/L ALT (0-31) U/L Alkaline Phosphatase (39-117) U/L Total Protein (6.5-8.0) g/dL Albumin (3.5-5.0) g/dL Urine Color Yellow Urine Appearance Clear Urine pH 6.0 (5.0-9.0) Ur Specific [place] 1.010 (1.005-1.025) Urine Protein Negative (Neg-Trace) mg/dL Urine Glucose (UA) Negative (Negative) mg/dL Urine Ketones Trace (Negative) mg/dL Urine Blood Large (3+) H (Negative) Urine Nitrite Negative (Negative) Ur Leukocyte Esterase Trace H (Negative) Urine RBC 0-2 (0-2) /HPF Urine WBC 0-5 (0-5) /HPF Ur Squamous Epith Cells 0-2 (0-2) /HPF Urine Bacteria Trace (None Seen) Hyaline Casts 0-2 (0-2) /LPF Urine Opiates Screen Not Detected (Not Detect) Urine Fentanyl Screen Not Detected (Not Detect) Ur Barbiturates Screen Not Detected (Not Detect) Ur Phencyclidine Scrn Not Detected (Not Detect) Ur Amphetamines Screen Not Detected (Not Detect) U Benzodiazepines Scrn Not Detected (Not Detect) Urine Cocaine Screen Not Detected (Not Detect) U Marijuana (THC) Screen POSITIVE H (Not Detect) Ethyl Alcohol mg/dL Discharge Plan Discharge Clinical Impression: Anxiety Patient Disposition: Home, Self-Care Instructions: Anxiety (ED) Additional Instructions: Please follow-up with your primary care physician tomorrow. If you have any worsening or new symptoms, please return to the emergency room or call 911 Prescriptions: No Action lactulose 10 gram/15 mL (15 mL) solution 15 ml PO DAILY PRN (Reason: constipation) Qty: 600 0RF cyclobenzaprine 10 mg tablet 10 mg PO TID PRN (Reason: pain) Qty: 14 0RF ibuprofen 400 mg tablet 400 mg PO Q6H PRN (Reason: pain) Qty: 20 0RF cyclobenzaprine 10 mg tablet 10 mg PO TID PRN (Reason: muscle spasm) Qty: 10 0RF amlodipine [Norvasc] 5 mg tablet 5 mg PO DAILY Qty: 30 0RF hydroxyzine HCl 25 mg tablet 25 mg PO TID PRN (Reason: For anxiety) Qty: 10 0RF venlafaxine 100 mg tablet 100 mg PO BID Qty: 14 0RF
[2022-12-10 19:10] LABS: MANUAL DIFF FLAG NO
[2022-12-10 19:20] VITALS: BP 126/80; PULSE 64; RESP 18; TEMP 36.2; O2SAT 97
[2022-12-10 19:22] LABS: Basophils Percent Auto 0.4 % (0-2); Eosinophils Absolute Auto 0.1 X10*3/uL (0.0-0.4); Eosinophils Percent Auto 0.8 % (0-4); Imm Gran Abs Auto 0.07 X10*3/uL (0.00-0.03); Imm Gran Pct Auto 0.7 % (0.0-0.4); Lymphocytes Absolute Auto 2.2 X10*3/uL (1.2-4.9); Lymphocytes Percent Auto 21.8 % (20-40); Mean Corpuscular HGB Conc 34.1 g/dl (31.0-35.0); Mean Corpuscular Hemoglobin 30.2 pg (27.0-33.0); Mean Corpuscular Volume 88.4 fL (80.0-98.0); Monocytes Absolute Auto 0.8 X10*3/uL (0.1-1.2); Monocytes Percent Auto 8.1 % (2-11); Neutrophils Absolute Auto 6.9 x10*3/uL (2.0-8.3); Neutrophils Percent Auto 68.2 % (45-73); Platelet Count 334 X10*3/uL (160-400); Red Blood Count 4.64 X10*6/uL (4.20-5.50); Red Cell Distribution Width 14.3 % (11.0-16.0); White Blood Count 10.1 X10*3/uL (4.8-10.8)
[2022-12-10 19:26] LABS: Alanine Aminotransferase 11 U/L (0-31); Albumin Level 4.3 g/dL (3.5-5.0); Alkaline Phosphatase 72 U/L (39-117); Anion Gap 17 (12-20); Aspartate Amino Transferase 12 U/L (5-31); Bilirubin Direct 0.1 mg/dL (0.0-0.5); Bilirubin Total 0.5 mg/dL (0.0-1.0); Blood Urea Nitrogen 7 mg/dL (9-16); Calcium 10.5 mg/dL (8.4-10.2); Carbon Dioxide 20 mmol/L (22-29); Chloride 106 mmol/L (96-108); Creatinine Clr Calc Pharmacy 99.5; Estimated Glomerular Filt Rate > 60; Glucose Random 90 mg/dL (60-115); Potassium 3.5 mmol/L (3.3-5.1); Sodium 139 mmol/L (135-145); Total Protein 7.5 g/dL (6.5-8.0)
[2022-12-10 19:31] LABS: Ethanol < 10 mg/dL
[2022-12-10 19:31] LABS: Appearance Urine Clear; Color Urine Yellow; Glucose Urine UA Negative (Negative); Leukocyte Esterase Urine Trace (Negative); Nitrite Urine Negative (Negative); UMIC TRIGGER UACC YES; Urine Blood Large (3+) (Negative); Urine Ketones Trace mg/dL (Negative); Urine Protein Negative (Neg-Trace)
[2022-12-10 19:39] LABS: Amphetamine Screen Urine Not Detected (Not Detect); Barbiturates, Urine Not Detected (Not Detect); Benzodiazepines Screen Urine Not Detected (Not Detect); Cannabinoid Screen Urine POSITIVE (Not Detect); Cocaine Screen Urine Not Detected (Not Detect); Fentanyl, urine Not Detected (Not Detect); Opiate Screen Urine Not Detected (Not Detect); Phencyclidine Screen Urine Not Detected (Not Detect)
[2022-12-10 20:44] LABS: Bacteria Urine Trace (None Seen); Hyaline Casts Urine 0-2 /LPF (0-2); RBC Urine 0-2 /HPF (0-2); Squamous Epithelial Cell Urine 0-2 /HPF (0-2); WBC Urine 0-5 /HPF (0-5)
--- NOTE | 2022-12-10 20:48 | PC.NURSE ---
Care team ([facility]) saw patient cleared for discharge. Dr. Micheline whitten.
--- NOTE | 2022-12-10 21:29 | MHC.CARE ---
Pt is a 42 yo [place] speaking single female who resides with her son and his 4 yo daughter in an apt in [place], [place]. Pt is unknown to the CARE Team and has never been assessed before. Today, the pt came to [facility] ED due to her anxiety and not having any anxiety medications. Pt was medically cleared and referred to the CARE Team to help her get an appointment with a therapist and med prescriber. Pt stated that her anxiety is coming back since she was titrated off of her anti-anxiety medication. She no longer has a therapist or a med prescriber and her PCP has also changed recently.? 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 Pt has a daughter who is 26 as well. Pt stated that she has 10 sisters and 5 brothers, and she talks to all of them regularly. Pt stated that she does not talk to her father and her mother 36 years ago. Pt stated that she is very close with her siblings and her children. Pt denies regular ETOH consumption and stated that she smokes marijuana but no other drugs at all. UTOX was (+) Marijuana and BAL <10.? Pt was A&O x4, wearing weather appropriate clothing, well groomed, and she appears her stated age. Pt was fully engaged with the conversation, making intermittent eye contact, and her speech was WNL. Pt stated that due to her anxiety she has not slept in the past week, but her appetite is WNL. Pt?s mood was depressed and her affect was congruent. Pt?s concentration and memory are intact. Pt denies SI/HI/AVH with plan, intent, or hx of any. Pt?s insight, judgment, and impulse control are all good. Plan is to discharge the pt with a referral to [facility]. A call has already been placed and the pt should be hearing from [facility] tomorrow with an appointment. The pt was very relieved when this became an option for her. CARE Team consulted with on-call supervisor facepiece line ELIZABETH Garcia and ED provider Dr. Tobias who both agree with this disposition. CARE Team will order a Lyft for the pt to return home in.
[2022-12-10] MEDS: Ibuprofen 600 MG TABLET PO (21:51)
== END 2022-12-10 21:53 | disposition home or self-care (01) ==
PROVIDERS: Emergency Provider Emergency Medicine
DX: F41.1 Generalized anxiety disorder (principal); F43.0 Acute stress reaction; Z79.899 Other long term (current) drug therapy
CPT/HCPCS: 36415; 80048; 80076; 80307; 81001; 85025; 99284

== ENCOUNTER 2022-12-11 00:39 | Emergency (ER) | payer MEDICAID, SELFPAY ==
[2022-12-11 00:44] VITALS: BP 160/80; PULSE 104
--- NOTE | 2022-12-11 00:51 | ECG_ITS ---
Test Reason : CHEST PAIN Blood Pressure : / mmHG Vent. Rate : 102 BPM Atrial Rate : 102 BPM P-R Int : 138 ms QRS Dur : 088 ms QT Int : 372 ms P-R-T Axes : 068 075 042 degrees QTc Int : 484 ms Sinus tachycardia Possible Left atrial enlargement Borderline ECG When compared with ECG of 01-OCT-2022 14:16, No significant change was found Referred By: Generic ED Physician Electronically Signed By:ESME PARRA
[2022-12-11 00:52] VITALS: BP 133/85; PULSE 92; RESP 18; TEMP 37.2; O2SAT 100; BMI 31.2
--- NOTE | 2022-12-11 01:24 | ED_ITS ---
HPI - Chest Pain General Chief Complaint: Chest Pain Stated Complaint: right arm pain Time Seen by Provider: 12/11/22 01:24 Source: patient Mode of arrival: ambulatory Limitations: no limitations History of Present Illness HPI narrative: Patient history of anxiety increased stress at home but just seen earlier for anxiety panic attack and discharged without giving any prescription patient comes back as unable to sleep because of situation and having pain in the right arm right side of the neck for last few days afraid of dying patient is on Klonopin which was not filled while ago last refill was 09/13 and trying to taper rate of unable to sleep now very anxious patient granddaughter has mental delay and she is overwhelmed with the care Related Data Previous Rx's Medication Instructions Recorded lactulose 10 gram/15 mL (15 mL) 15 ml PO DAILY PRN constipation 10/24/20 oral solution #600 mL amlodipine 5 mg tablet (Norvasc) 5 mg PO DAILY #30 tabs 05/15/22 cyclobenzaprine 10 mg tablet 10 mg PO TID PRN muscle spasm #10 05/15/22 tabs cyclobenzaprine 10 mg tablet 10 mg PO TID PRN pain #14 tabs 07/31/22 ibuprofen 400 mg tablet 400 mg PO Q6H PRN pain #20 tabs 07/31/22 hydroxyzine HCl 25 mg tablet 25 mg PO TID PRN For anxiety #10 10/01/22 tabs venlafaxine 100 mg tablet 100 mg PO BID #14 tabs 10/01/22 hydroxyzine HCl 50 mg tablet 50 mg PO TID PRN nausea and 12/10/22 vomiting #14 tabs clonazepam 1 mg tablet (Klonopin) 1 mg PO BEDTIME PRN Anxiety/sleep 12/11/22 #10 tabs tramadol 50 mg tablet 50 mg PO Q6H PRN pain #20 tabs 12/11/22 Allergies Allergy/AdvReac Type Severity Reaction Status Date / Time hydrocodone [From VICODIN] Allergy Unknown TACHYCARDIA Unverified 03/10/20 15:19 Review of Systems Review of Systems: Yes all other systems are reviewed and are negative [facility] Past Medical History Medical History Anxiety Social History Social History Alcohol intake: never Smoked in Last 30 Days: Yes Use of substances other than those prescribed or required for medical reasons: Yes Substance Use Type: Marijuana Substance Use Frequency: Chronic Longstanding Advance Directives: No Advance Directives Information Provided: Yes Patient : No Physical Exam Vital Signs: Vital Signs: Last Vital Signs Temp 98.9 F 12/11/22 00:52 Pulse 92 12/11/22 00:52 Resp 18 12/11/22 00:52 BP 133/85 12/11/22 00:52 Pulse Ox 100 12/11/22 00:52 O2 Del Method Room Air 12/11/22 00:52 BMI result Body Mass Index 31.2 Appearance: Alert. Oriented X3. No acute distress. Very anxious tear Eyes: PERRLA, No Nystagmus ENT: Pharynx normal. Oral Mucosa moist Neck: Normal inspection. Neck supple. CVS: Normal heart rate and rhythm. Pulses normal. Respiratory: No respiratory distress. Equal air entry bilateral, no wheezing/rales/rhonchi Abdomen: Soft and nontender. Bowel sounds are present, no mass palpable, no CVA tenderness Skin: Skin warm and dry. Normal skin color. Normal skin turgor. Extremities: No lower extremity edema. No calf tenderness tenderness right and left upper back Neuro: Oriented X 3. No motor deficit. Medications Administered Discontinued Medications Generic Name Dose Route Start Last Admin Trade Name Freq PRN Reason Stop Dose Admin Clonazepam 1 mg 12/11/22 01:32 12/11/22 01:40 Clonazepam 1 Mg Tablet PO 12/11/22 01:33 1 mg ONCE ONE Administration Medical Decision Making Medical Decision Making MDM Narrative: Patient likely with anxiety and fibromyalgia as a cause pain is follow with PCP which she is scheduled to see next week Discharge Plan Discharge Clinical Impression: Anxiety, Musculoskeletal arm pain Patient Disposition: Home, Self-Care Instructions: Musculoskeletal Pain (ED), Anxiety (ED) Additional Instructions: Take medication for anxiety as prescribed Tramadol for musculoskeletal pain possible fibromyalgia Relax and follow with PCP Prescriptions: New clonazepam [Klonopin] 1 mg tablet 1 mg PO BEDTIME PRN (Reason: Anxiety/sleep) Qty: 10 0RF Rx Instructions: administer 30 minutes before bedtime tramadol 50 mg tablet 50 mg PO Q6H PRN (Reason: pain) Qty: 20 0RF No Action lactulose 10 gram/15 mL (15 mL) solution 15 ml PO DAILY PRN (Reason: constipation) Qty: 600 0RF cyclobenzaprine 10 mg tablet 10 mg PO TID PRN (Reason: pain) Qty: 14 0RF ibuprofen 400 mg tablet 400 mg PO Q6H PRN (Reason: pain) Qty: 20 0RF cyclobenzaprine 10 mg tablet 10 mg PO TID PRN (Reason: muscle spasm) Qty: 10 0RF amlodipine [Norvasc] 5 mg tablet 5 mg PO DAILY Qty: 30 0RF hydroxyzine HCl 25 mg tablet 25 mg PO TID PRN (Reason: For anxiety) Qty: 10 0RF venlafaxine 100 mg tablet 100 mg PO BID Qty: 14 0RF hydroxyzine HCl 50 mg tablet 50 mg PO TID PRN (Reason: nausea and vomiting) Qty: 14 0RF Rx Instructions: PRN anxiety Discharge Date/Time: 12/11/22 02:05
[2022-12-11] MEDS: clonazePAM 1 MG TABLET PO (01:40)
--- NOTE | 2022-12-11 01:44 | PC.NURSE ---
On arrival pt visibly anxious, intermittently tearful. EKG ordered and performed. Spoke with patient and able to redirect with good effect. Per MD, plan for short term prescription for medications for anxiety and follow up with [facility] in am. Pending arrival of pt ride home for D/C
== END 2022-12-11 02:05 | disposition home or self-care (01) ==
PROVIDERS: Emergency Provider Internal Medicine
DX: R07.89 Other chest pain (principal); M79.601 Pain in right arm; F41.1 Generalized anxiety disorder; F43.0 Acute stress reaction; Z79.899 Other long term (current) drug therapy
CPT/HCPCS: 93005; 99283; 99284

== ENCOUNTER 2023-01-03 15:58 | Emergency (ER) | payer MEDICAID, SELFPAY ==
[2023-01-03 16:04] VITALS: BP 137/89; PULSE 104; O2SAT 96
--- NOTE | 2023-01-03 17:08 | ED.GENADULT ---
HPI - General Adult General Stated complaint: Anxiety Related Data Previous Rx's Medication Instructions Recorded lactulose 10 gram/15 mL (15 mL) 15 ml PO DAILY PRN constipation 10/24/20 oral solution #600 mL amlodipine 5 mg tablet (Norvasc) 5 mg PO DAILY #30 tabs 05/15/22 cyclobenzaprine 10 mg tablet 10 mg PO TID PRN muscle spasm #10 05/15/22 tabs cyclobenzaprine 10 mg tablet 10 mg PO TID PRN pain #14 tabs 07/31/22 ibuprofen 400 mg tablet 400 mg PO Q6H PRN pain #20 tabs 07/31/22 hydroxyzine HCl 25 mg tablet 25 mg PO TID PRN For anxiety #10 10/01/22 tabs venlafaxine 100 mg tablet 100 mg PO BID #14 tabs 10/01/22 hydroxyzine HCl 50 mg tablet 50 mg PO TID PRN nausea and 12/10/22 vomiting #14 tabs clonazepam 1 mg tablet (Klonopin) 1 mg PO BEDTIME PRN Anxiety/sleep 12/11/22 #10 tabs tramadol 50 mg tablet 50 mg PO Q6H PRN pain #20 tabs 12/11/22 Allergies Allergy/AdvReac Type Severity Reaction Status Date / Time hydrocodone [From VICODIN] Allergy Unknown TACHYCARDIA Unverified 03/10/20 15:19 hydroxyzine AdvReac Severe Weakness Verified 01/03/23 17:10 [facility] Past Medical History Medical History Anxiety Social History Social History Alcohol intake: never Substance Use Type: Marijuana Course Course Course Narrative: This is a rapid medical exam: Additional HPI, ROS, PE not included below will be deferred to primary provider. Patient is a 42-year-old female presentint to ED by ambulance for chest tightness and anxiety. States she had an EKG in the ambulance and was told it was normal. Stating she feels better and does not intend to stay for further evaluation. Offered to order labs but patient stating she will follow up with her PCP. Patient A+Ox3, in no acute distress, has been seen in this ED in the past several times for similar complaint, VS WNL, LS CTA throughout. Discharge Plan Discharge Clinical Impression: Anxiety Patient Disposition: Elopement Prescriptions: No Action lactulose 10 gram/15 mL (15 mL) solution 15 ml PO DAILY PRN (Reason: constipation) Qty: 600 0RF cyclobenzaprine 10 mg tablet 10 mg PO TID PRN (Reason: pain) Qty: 14 0RF ibuprofen 400 mg tablet 400 mg PO Q6H PRN (Reason: pain) Qty: 20 0RF cyclobenzaprine 10 mg tablet 10 mg PO TID PRN (Reason: muscle spasm) Qty: 10 0RF amlodipine [Norvasc] 5 mg tablet 5 mg PO DAILY Qty: 30 0RF hydroxyzine HCl 25 mg tablet 25 mg PO TID PRN (Reason: For anxiety) Qty: 10 0RF venlafaxine 100 mg tablet 100 mg PO BID Qty: 14 0RF hydroxyzine HCl 50 mg tablet 50 mg PO TID PRN (Reason: nausea and vomiting) Qty: 14 0RF Rx Instructions: PRN anxiety clonazepam [Klonopin] 1 mg tablet 1 mg PO BEDTIME PRN (Reason: Anxiety/sleep) Qty: 10 0RF Rx Instructions: administer 30 minutes before bedtime tramadol 50 mg tablet 50 mg PO Q6H PRN (Reason: pain) Qty: 20 0RF
--- NOTE | 2023-01-03 17:16 | PC.NURSE ---
pt came into triage and stated she was going to leave, she feels it was her anxiety and will follow up with pcp she was offered care but declined
== END 2023-01-03 17:15 | disposition left against medical advice (07) ==
PROVIDERS: Emergency Provider Emergency Medicine
DX: F41.1 Generalized anxiety disorder (principal); F43.0 Acute stress reaction; Z79.899 Other long term (current) drug therapy

== ENCOUNTER 2023-02-08 12:14 | Outpatient (REF) | payer MEDICAID, SELFPAY ==
[2023-02-08 13:03] LABS: MANUAL DIFF FLAG NO
[2023-02-08 13:32] LABS: Basophils Absolute Auto 0.1 X10*3/uL (0.0-0.2); Basophils Percent Auto 0.8 % (0-2); Eosinophils Absolute Auto 0.2 X10*3/uL (0.0-0.4); Eosinophils Percent Auto 2.1 % (0-4); Hematocrit 41.7 % (37.0-47.0); Hemoglobin 13.6 g/dl (12.0-16.0); Imm Gran Abs Auto 0.04 X10*3/uL (0.00-0.03); Imm Gran Pct Auto 0.5 % (0.0-0.4); Lymphocytes Absolute Auto 2.4 X10*3/uL (1.2-4.9); Lymphocytes Percent Auto 32.3 % (20-40); Mean Corpuscular HGB Conc 32.6 g/dl (31.0-35.0); Mean Corpuscular Hemoglobin 29.6 pg (27.0-33.0); Mean Corpuscular Volume 90.8 fL (80.0-98.0); Mean Platelet Volume 10.2 fL (9.4-12.3); Monocytes Absolute Auto 0.7 X10*3/uL (0.1-1.2); Monocytes Percent Auto 8.9 % (2-11); Neutrophils Absolute Auto 4.1 x10*3/uL (2.0-8.3); Neutrophils Percent Auto 55.4 % (45-73); Platelet Count 360 X10*3/uL (160-400); Red Blood Count 4.59 X10*6/uL (4.20-5.50); Red Cell Distribution Width 14.6 % (11.0-16.0); White Blood Count 7.5 X10*3/uL (4.8-10.8)
[2023-02-08 13:57] LABS: Estimated Average Glucose 97 mg/dL
[2023-02-08 14:02] LABS: Creatinine Urine 222.39 mg/dL; Microalbum/Creatinine Ratio Ur 4.9 ug/mg cr
[2023-02-08 14:15] LABS: Alanine Aminotransferase 9 U/L (0-31); Alkaline Phosphatase 67 U/L (39-117); Anion Gap 15 (12-20); Aspartate Amino Transferase 11 U/L (5-31); Bilirubin Total 0.2 mg/dL (0.0-1.0); Blood Urea Nitrogen 13 mg/dL (9-16); Calcium 9.5 mg/dL (8.4-10.2); Carbon Dioxide 24 mmol/L (22-29); Chloride 106 mmol/L (96-108); Cholesterol 258 mg/dL; Estimated Glomerular Filt Rate > 60; Glucose Random 94 mg/dL (60-115); HDL Cholesterol 48 mg/dL; Iron 61 mcg/dL (30-160); LDL Cholesterol Calculated 183 mg/dl; Percent Iron Saturation 19 % (15-50); Potassium 3.5 mmol/L (3.3-5.1); Sodium 141 mmol/L (135-145); Total Iron Binding Capacity 322 mcg/dL (228-428); Total Protein 7.1 g/dL (6.5-8.0); Triglycerides 135 mg/dL; Unsaturated Iron Binding 261 ug/dL
[2023-02-08 14:31] LABS: TSH reflex Free T4 0.96 uIU/mL (0.32-4.0)
[2023-02-08 15:19] LABS: CT PCR NOT DETECTED (Not Detect.); NG PCR NOT DETECTED (Not Detect.)
[2023-02-09 03:37] LABS: Syphilis Screen Nonreactive (Nonreactive)
[2023-02-09 04:13] LABS: ~HepC Num1 0.07 S/CO (0.00-0.79); ~Hepatitis C Antibody Nonreactive (Nonreactive)
[2023-02-09 04:16] LABS: HBS Num1 0.14 mIU/mL (0-7.99); HBsAGNum1 0.37 S/CO (0.00-0.99); Hepatitis B Core Antibody Nonreactive (Nonreactive); Hepatitis B Surface Antigen Negative (Negative); ~Hepatitis B Surface Antibody NONREACTIVE (Nonreactive)
== END 2023-02-08 12:15 | disposition home or self-care (01) ==
LOC: HO.HHCL 12:14
PROVIDERS: Visit Provider Student in an Organized Health Care Education/Training Program
DX: Z00.00 Encounter for general adult medical examination without abnormal findings (principal); Z11.3 Encounter for screening for infections with a predominantly sexual mode of transmission
CPT/HCPCS: 0353U; 80053; 80061; 82043; 82306; 83036; 83540; 84443; 85025; 86704; 86706; 86780; 86803; 87340

== ENCOUNTER 2023-02-18 09:09 | Outpatient (REF) | payer MEDICAID, SELFPAY ==
--- NOTE | ~2023-02-18 | XR_ITS ---
EXAMINATION: XR SHOULDER, RIGHT CLINICAL INFORMATION: Right shoulder pain for months COMPARISON: None available. TECHNIQUE: Four views of the right shoulder. FINDINGS: Acromioclavicular joint maintained. Glenohumeral alignment preserved. No abnormal soft tissue calcifications identified adjacent to the humeral head. XR/XR shoulder RT min 2V IMPRESSION: Acromioclavicular and glenohumeral alignment preserved.
== END 2023-02-18 09:10 | disposition home or self-care (01) ==
LOC: HO.HHCX 09:09
PROVIDERS: Visit Provider Student in an Organized Health Care Education/Training Program
DX: M25.511 Pain in right shoulder (principal); G89.29 Other chronic pain
CPT/HCPCS: 73030

== ENCOUNTER 2023-02-18 21:37 | Emergency (ER) | payer MEDICAID, SELFPAY ==
--- NOTE | 2023-02-18 21:43 | ECG_ITS ---
Test Reason : CHEST PAIN Blood Pressure : / mmHG Vent. Rate : 092 BPM Atrial Rate : 092 BPM P-R Int : 140 ms QRS Dur : 088 ms QT Int : 402 ms P-R-T Axes : 054 064 029 degrees QTc Int : 497 ms Normal sinus rhythm Possible Left atrial enlargement Prolonged QT Abnormal ECG When compared with ECG of 11-DEC-2022 00:48, No significant change was found Referred By: Eloise Samuel Electronically Signed By:PEYTON GHOSH
[2023-02-18 21:45] VITALS: BP 129/95; BP 160/102; PULSE 91; PULSE 98; RESP 12; TEMP 36.8; O2SAT 98; BMI 37.9
[2023-02-18 21:58] VITALS: PULSE 91
--- NOTE | 2023-02-18 22:07 | ED.CHESTPAIN ---
HPI - Chest Pain General Chief Complaint: Chest Pain Stated Complaint: chest pain,anxiety Time Seen by Provider: 02/18/23 21:46 Source: patient, EMS and old records reviewed Mode of arrival: EMS Limitations: no limitations History of Present Illness HPI narrative: 42-year-old female well known to our ED staff for multiple ED visits for acute anxiety, her outside provider prescribe her her anxiety medication patient did not pick it up at the pharmacy today and did not have her medication today was on the phone when she suddenly started to feel anxious feeling chest pain and left shoulder pain which is typical for her anxiety symptoms, patient otherwise declined SI or HI no visual or auditory hallucination. Related Data Previous Rx's Medication Instructions Recorded lactulose 10 gram/15 mL (15 mL) 15 ml PO DAILY PRN constipation 10/24/20 oral solution #600 mL amlodipine 5 mg tablet (Norvasc) 5 mg PO DAILY #30 tabs 05/15/22 cyclobenzaprine 10 mg tablet 10 mg PO TID PRN muscle spasm #10 05/15/22 tabs cyclobenzaprine 10 mg tablet 10 mg PO TID PRN pain #14 tabs 07/31/22 ibuprofen 400 mg tablet 400 mg PO Q6H PRN pain #20 tabs 07/31/22 hydroxyzine HCl 25 mg tablet 25 mg PO TID PRN For anxiety #10 10/01/22 tabs venlafaxine 100 mg tablet 100 mg PO BID #14 tabs 10/01/22 hydroxyzine HCl 50 mg tablet 50 mg PO TID PRN nausea and 12/10/22 vomiting #14 tabs clonazepam 1 mg tablet (Klonopin) 1 mg PO BEDTIME PRN Anxiety/sleep 12/11/22 #10 tabs tramadol 50 mg tablet 50 mg PO Q6H PRN pain #20 tabs 12/11/22 Allergies Allergy/AdvReac Type Severity Reaction Status Date / Time hydrocodone [From VICODIN] Allergy Unknown TACHYCARDIA Unverified 03/10/20 15:19 hydroxyzine AdvReac Severe Weakness Verified 01/03/23 17:10 Review of Systems Review of Systems: All other systems are reviewed and are negative Constitutional: Reports as per HPI and Reports no additional constitutional complaints Eyes: Reports as per HPI and Reports no additional eye complaints Reports system reviewed and no additional complaints, except as documented Cardiovascular: Reports as per HPI and Reports no additional cardiovascular complaints Respiratory: Reports as per HPI and Reports no additional respiratory complaints Gastrointestinal: Reports as per HPI and Reports no additional gastrointestinal complaints Genitourinary: Reports no additional female genitourinary complaints Musculoskeletal: Reports no additional musculoskeletal complaints Skin/Breast: Reports system reviewed and no additional complaints, except as docu Psychiatric: Reports no additional psychiatric complaints Endocrine: Reports no additional endocrine complaints Hematologic/Lymphatic: Reports no additional hematologic/lymphatic complaints Allergic/Immunologic: Reports no additional allergic/immunologic complaints Reports system reviewed and no additional complaints, except as documented and Reports Abnormal speech present [facility] Past Medical History Medical History Anxiety Social History Social History Alcohol intake: former Smoked in Last 30 Days: Yes Use of substances other than those prescribed or required for medical reasons: No Substance Use Type: Marijuana Advance Directives: No Advance Directives Information Provided: No Patient : No Physical Exam Vital Signs: Vital Signs: Last Vital Signs Temp 98.2 F 02/18/23 21:45 Pulse 91 02/18/23 21:45 Resp 12 02/18/23 21:45 BP 129/95 H 02/18/23 21:45 Pulse Ox 98 02/18/23 21:45 O2 Del Method Room Air 02/18/23 21:45 BMI result Body Mass Index 37.9 Vital signs have been reviewed as appeared to be correct. Blood pressure normal. Heart rate normal. Respiration rate normal. Temperature normal. Oxygen saturation normal. Appearance: Anxious, Alert. Oriented X3. No acute distress. Head: Normal external exam. Normocephalic. Atraumatic. No Singletary signs noted. No raccoon eyes noted Eyes: PERRLA. EOMI. Conjunctiva and sclera normal. Eyelids normal. ENT: TM's Normal. Pharynx normal. Uvula midline. Moist mucous membranes. No trismus noted. No drooling noted. No muffled voice noted. Neck: Normal inspection. Neck supple. FROM. No adenopathy. Thyroid Normal. No meningeal signs. No neck mass noted. CVS: Normal heart rate and rhythm. Heart sound normal. No murmurs noted. Pulses normal throughout. Respiratory: No respiratory distress. Painless inspiration. Breath sounds normal. No wheezes/rales/rhonchi noted. Chest nontender. No accessory muscle usage noted or decreased air movement noted. Abdomen: Soft and nontender. Bowel sounds normal in all 4 quadrants. No distention noted. No organomegaly noted. No visible injury noted. Back: No CVA tenderness. Full range of motion noted. Skin: Skin warm and dry. Normal skin color. Normal skin turgor. No rashes/lesions/lacerations noted. Extremities: No lower extremity edema. Extremities exhibit normal range of motion. Extremities nontender. Neuro: Oriented X 3. Cranial nerve exam: II-XII are grossly intact No motor deficit. No sensory deficit. Reflexes normal. Patient Orientation: Person, Place, Time and Situation, okay hygiene and grooming. Fair eye contact, attentive, no tics or tremors. Level of Consciousness: Awake, Appropriate and Alert Patient Behavior: Appropriate, Guarded, Cooperative and Anxious Mood Description: Constricted, Blunted and Apprehensive Affect Description: Constricted, Blunted and Apprehensive Patient Cognition Impaired: No Ability to Follow Directions: Excellent Speech Pattern: Clear, Appropriate and Spontaneous Speech, nonpressured, spontaneous with regular rate and rhythm, normal volume and prosody. No dysarthria. Memory Description: Intact, Immediate Intact and Short Term Intact Hallucinations: None Delusions: Not Present Thought Process: Intact Thought Content: positive for Intact, positive for Logical, denies Suicidal Ideation and denies Homicidal Ideation. Depressive Symptoms: Not present. Judgement and Insight: Limited but adequate. Course Course Course Narrative: Known history of anxiety came in with her typical presentation of anxiety of left chest pain and left shoulder pain, EKG is unchanged, patient now is calm after was given Ativan. Medications Administered Discontinued Medications Generic Name Dose Route Start Last Admin Trade Name Domoq PRN Reason Stop Dose Admin Clonazepam 1 mg 02/18/23 22:14 02/18/23 22:34 Clonazepam 1 Mg Tablet PO 02/18/23 22:15 1 mg ONCE ONE Administration Lorazepam 2 mg 02/18/23 21:51 02/18/23 22:27 Lorazepam 1 Mg Tablet PO 02/18/23 21:52 Not Given ONCE ONE Medical Decision Making Differential Diagnosis Differential Diagnoses: The differential diagnosis associated with the presentation includes (Anxiety, ACS, SI, HI, acute psychosis.) Admission/Observation Consideration of admission/observation: Escalation of care including admission/observation considered Lab Data MDM Lab Attestation statement: I reviewed the patient's lab results. Labs: Lab Results 02/18/23 Range/Units 22:44 Troponin I High Sens < 2.7 (<3.5-17.0) ng/L Independent Interpretation I performed an independent interpretation of an: EKG (Normal sinus rhythm at 92 beats per minute, normal axis deviation, normal intervals) Radiology Impression Discussion of test interpretation with radiology: I have reviewed the radiologist's reading. Discharge Plan Discharge Clinical Impression: Acute anxiety, Atypical chest pain Patient Disposition: Home, Self-Care Instructions: Anxiety (ED) Prescriptions: No Action lactulose 10 gram/15 mL (15 mL) solution 15 ml PO DAILY PRN (Reason: constipation) Qty: 600 0RF cyclobenzaprine 10 mg tablet 10 mg PO TID PRN (Reason: pain) Qty: 14 0RF ibuprofen 400 mg tablet 400 mg PO Q6H PRN (Reason: pain) Qty: 20 0RF cyclobenzaprine 10 mg tablet 10 mg PO TID PRN (Reason: muscle spasm) Qty: 10 0RF amlodipine [Norvasc] 5 mg tablet 5 mg PO DAILY Qty: 30 0RF hydroxyzine HCl 25 mg tablet 25 mg PO TID PRN (Reason: For anxiety) Qty: 10 0RF venlafaxine 100 mg tablet 100 mg PO BID Qty: 14 0RF hydroxyzine HCl 50 mg tablet 50 mg PO TID PRN (Reason: nausea and vomiting) Qty: 14 0RF Rx Instructions: PRN anxiety clonazepam [Klonopin] 1 mg tablet 1 mg PO BEDTIME PRN (Reason: Anxiety/sleep) Qty: 10 0RF Rx Instructions: administer 30 minutes before bedtime tramadol 50 mg tablet 50 mg PO Q6H PRN (Reason: pain) Qty: 20 0RF
[2023-02-18] MEDS: clonazePAM 1 MG TABLET PO (22:34)
[2023-02-18 23:11] LABS: Troponin-I High Sensitivity < 2.7 ng/L (<3.5-17.0)
== END 2023-02-19 00:25 | disposition home or self-care (01) ==
PROVIDERS: Emergency Provider Emergency Medicine
DX: R07.89 Other chest pain (principal); F41.1 Generalized anxiety disorder; F43.0 Acute stress reaction; Z79.899 Other long term (current) drug therapy
CPT/HCPCS: 36415; 84484; 93005; 99283; 99284

== ENCOUNTER 2023-02-21 15:42 | Emergency (ER) | payer MEDICAID, SELFPAY ==
--- NOTE | 2023-02-21 | ECG_ITS ---
Test Reason : CP Blood Pressure : / mmHG Vent. Rate : 080 BPM Atrial Rate : 080 BPM P-R Int : 146 ms QRS Dur : 090 ms QT Int : 406 ms P-R-T Axes : 065 061 043 degrees QTc Int : 468 ms Normal sinus rhythm Normal ECG When compared with ECG of 18-FEB-2023 21:51, QT has shortened Referred By: Generic ED Physician Electronically Signed By:PEYTON GHOSH
[2023-02-21 15:49] VITALS: BP 136/90; PULSE 77; RESP 18; TEMP 36.6; O2SAT 95; BMI 38.2
--- NOTE | 2023-02-21 16:10 | ED_ITS ---
HPI - Chest Pain General Chief Complaint: Chest Pain Stated Complaint: CHEST PAIN RADIATES DOWN ARM Time Seen by Provider: 02/21/23 16:03 Source: patient Mode of arrival: EMS Limitations: no limitations History of Present Illness HPI narrative: This in the hours of chest pain. Patient states that she woke up, started complaining of chest pain, states she called 911. Patient states that when EMS arrived and the paramedics press on her chest it hurt much worse and since then it has been hurting more. Patient was given aspirin in the emergency room. Patient denies any shortness of breath. Patient was evaluated in the emergency room 2 days ago for the same complaint. Any URI or UTI symptoms. Related Data Previous Rx's Medication Instructions Recorded lactulose 10 gram/15 mL (15 mL) 15 ml PO DAILY PRN constipation 10/24/20 oral solution #600 mL amlodipine 5 mg tablet (Norvasc) 5 mg PO DAILY #30 tabs 05/15/22 cyclobenzaprine 10 mg tablet 10 mg PO TID PRN muscle spasm #10 05/15/22 tabs cyclobenzaprine 10 mg tablet 10 mg PO TID PRN pain #14 tabs 07/31/22 ibuprofen 400 mg tablet 400 mg PO Q6H PRN pain #20 tabs 07/31/22 hydroxyzine HCl 25 mg tablet 25 mg PO TID PRN For anxiety #10 10/01/22 tabs venlafaxine 100 mg tablet 100 mg PO BID #14 tabs 10/01/22 hydroxyzine HCl 50 mg tablet 50 mg PO TID PRN nausea and 12/10/22 vomiting #14 tabs clonazepam 1 mg tablet (Klonopin) 1 mg PO BEDTIME PRN Anxiety/sleep 12/11/22 #10 tabs tramadol 50 mg tablet 50 mg PO Q6H PRN pain #20 tabs 12/11/22 Allergies Allergy/AdvReac Type Severity Reaction Status Date / Time hydrocodone [From VICODIN] Allergy Unknown TACHYCARDIA Verified 02/21/23 18:20 hydroxyzine AdvReac Severe Weakness Verified 02/21/23 18:20 Review of Systems Review of Systems: Constitutional : No Weight loss, No Fever, No Chills, No Night Sweats, No Fatigue, No Malaise ENT/Mouth : No Hearing loss, No Ear Pain, No Nasal Congestion, No Sinus Pain, No Hoarseness, No sore throat, No Rhinorrhea, No Swallowing Difficulty Eyes: No Eye Pain, No Swelling, No Redness, No Foreign Body, No Discharge, No Vision Changes Cardiovascular : Complaining of Chest Pain is worse with putting manual pressure over the chest , No SOB, No Dyspnea on Exertion, No Orthopnea, No Edema, No Palpitations Respiratory : No Cough, No Sputum, No Wheezing, No Smoke Exposure, No Dyspnea Gastrointestinal : No Nausea, No Vomiting, No Diarrhea, No Constipation, No abdominal Pain, No Hematochezia, No Melena Genitourinary : no irregular bleeding, No Dysuria, No Urinary Frequency, No Hematuria, No Urinary Incontinence, No Urgency, No Flank Pain, No Urinary Flow Changes, No Hesitancy Musculoskeletal : No joint pain, No Myalgias, No Joint Swelling Skin : No Skin Lesions, No rash Neuro : No Weakness, No Numbness, No Paresthesias, No Loss of Consciousness, No Dizziness, No Headache Psych : No Anxiety/Panic, No Depression, No SI/HI/AH/VH, No Social Issues, Heme/Lymph: No Bruising, No Bleeding,No Lymphadenopathy Endocrine : No Polyuria, No Polydipsia, No Temperature Intolerance PMFSH Past Medical History Medical History Anxiety Social History Social History Alcohol intake: former Smoked in Last 30 Days: Yes Use of substances other than those prescribed or required for medical reasons: Yes Substance Use Type: Marijuana Advance Directives: No Advance Directives Information Provided: Yes Patient : No Physical Exam Vital Signs: Vital Signs: Last Vital Signs Temp 98.4 F 02/21/23 18:57 Pulse 70 02/21/23 18:57 Resp 17 02/21/23 18:57 BP 119/75 02/21/23 18:57 Pulse Ox 97 02/21/23 18:57 O2 Del Method Room Air 02/21/23 18:57 BMI result Body Mass Index 38.2 Const: Other: Appearance: Alert. Oriented X3. No acute distress. Eyes: Pupils equal, round and reactive to light. ENT: Pharynx normal. Neck: Normal inspection. Neck supple. No lymph nodes noted. No crepitus CVS: Normal heart rate and rhythm. Pulses normal. Normal S1 and S2 Respiratory: No respiratory distress. Breath sounds normal. No Wheezing. No rales Abdomen: Soft and nontender. No rigidity. No distention. Skin: Skin warm and dry. Normal skin color. Normal skin turgor. Extremities: No lower extremity edema. No Lacerations. No Rash Neuro: Oriented X 3. No motor deficit. No sensory deficit. Moving all extremities. No slurred speech. CN 2 through 12 grossly intact Psych: calm, cooperative, normal affect Course Course Course Narrative: -patient has been evaluated multiple times for same complaint. -patient's labs pending Medications Administered Discontinued Medications Generic Name Dose Route Start Last Admin Trade Name Samina PRN Reason Stop Dose Admin Aspirin 325 mg 02/21/23 18:09 02/21/23 18:21 Aspirin Enteric Coated 325 Mg Tablet.Dr GRIFFITH 02/21/23 18:10 Not Given ONCE ONE Medical Decision Making Medical Decision Making MDM Narrative: -my interpretation EKG: Normal sinus rhythm, heart rate 80, no ST segment depression or elevation, no T-wave inversion, QTC 468 -patient's potassium 3.2, no treatment needed. -patient's troponin negative, D-dimer negative -patient requested pain for medication, patient was given aspirin. Discussed with the patient that a troponin, EKG and dimer are negative, unlikely to have cardiac pain. -Patient requested pain medication, aspirin was given to her. -I was informed by the patient's nurse that the patient was extremely upset that I am not treating her well, that I am not addressing her pain. Patient yelling that she wants something stonger. Tyelnol or ibuprofen offered. I discussed with the patient that the chest pain she is experiencing is unlikely to be cardiac, if she has any further concern, she can follow up with her primary care physician and if the PCP thinks it is necessary, she can be referred for a cardiac stress test. However, from my standpoint, current source of chest pain is not cardiac or pulmonary. Patient proceeded to walk around the hallway, yelling and being belligerent with the nurses, patient was screaming that she has been here 3 times, and 3 times in a row I have been disrespectful to her and discharged her in pain. Also, patient yelling that I have prescribed to her the wrong medication with the dose and stated that i purposefully send medication to her pharmacy that she is allergic to. However, have never prescribed medications to this patient. In fact, the last time that I saw the patient was back in November of 2022, pt was waiting to be seen by the care team and our interaction was completely uneventful. The patient has been seen multiple times lately, but she was not my patient all, and did not interact with her in any way. Security was called by the charge nurse to assist to discharge the patient, she kicked one of the security staff on her way out Differential Diagnosis Differential Diagnoses: The differential diagnosis associated with the presentation includes (ACS, anxiety, pleurisy and costochondritis) Admission/Observation Consideration of admission/observation: Escalation of care including admission/observation considered (Patient came in complaining of recurrent chest pain, patient considered) Lab Data MDM Lab Attestation statement: I reviewed the patient's lab results. 02/21/23 17:13 02/21/23 18:13 Labs: Lab Results 02/21/23 02/21/23 02/21/23 Range/Units 16:52 17:13 18:13 WBC 9.3 (4.8-10.8) X10*3/uL RBC 4.47 (4.20-5.50) X10*6/uL Hgb 13.5 (12.0-16.0) g/dl Hct 39.7 (37.0-47.0) % MCV 88.8 (80.0-98.0) fL MCH 30.2 (27.0-33.0) pg MCHC 34.0 (31.0-35.0) g/dl RDW 14.4 (11.0-16.0) % Plt Count 328 (160-400) X10*3/uL MPV 10.4 (9.4-12.3) fL Immature Gran % (Auto) 0.4 (0.0-0.4) % Neut % (Auto) 66.8 (45-73) % Lymph % (Auto) 22.9 (20-40) % [place] % (Auto) 8.7 (2-11) % Eos % (Auto) 0.9 (0-4) % Baso % (Auto) 0.3 (0-2) % Lymph # (Auto) 2.1 (1.2-4.9) X10*3/uL [place] # (Auto) 0.8 (0.1-1.2) X10*3/uL Eos # (Auto) 0.1 (0.0-0.4) X10*3/uL Baso # (Auto) 0.0 (0.0-0.2) X10*3/uL Abs Immat Gran (auto) 0.04 H (0.00-0.03) X10*3/uL Absolute Neuts (auto) 6.2 (2.0-8.3) x10*3/uL Absolute Nucleated RBC 0.000 (0.0-0.012) X10*3/uL Nucleated RBC % (auto) 0.0 (0.0-0.2) /100WBC D-Dimer High Sensitivty < 150 NG/ML Sodium 137 (135-145) mmol/L Potassium 3.2 L (3.3-5.1) mmol/L Chloride 102 (96-108) mmol/L Carbon Dioxide 21 L (22-29) mmol/L Anion Gap 17 (12-20) BUN 8 L (9-16) mg/dL Creatinine 0.74 (0.5-1.4) mg/dL Estim Creat Clear Calc 97.1 Estimated GFR > 60 Random Glucose 91 (60-115) mg/dL Calcium 10.2 D (8.4-10.2) mg/dL Troponin I High Sens (<3.5-17.0) ng/L 02/21/23 Range/Units 18:13 WBC (4.8-10.8) X10*3/uL RBC (4.20-5.50) X10*6/uL Hgb (12.0-16.0) g/dl Hct (37.0-47.0) % MCV (80.0-98.0) fL MCH (27.0-33.0) pg MCHC (31.0-35.0) g/dl RDW (11.0-16.0) % Plt Count (160-400) X10*3/uL MPV (9.4-12.3) fL Immature Gran % (Auto) (0.0-0.4) % Neut % (Auto) (45-73) % Lymph % (Auto) (20-40) % [place] % (Auto) (2-11) % Eos % (Auto) (0-4) % Baso % (Auto) (0-2) % Lymph # (Auto) (1.2-4.9) X10*3/uL [place] # (Auto) (0.1-1.2) X10*3/uL Eos # (Auto) (0.0-0.4) X10*3/uL Baso # (Auto) (0.0-0.2) X10*3/uL Abs Immat Gran (auto) (0.00-0.03) X10*3/uL Absolute Neuts (auto) (2.0-8.3) x10*3/uL Absolute Nucleated RBC (0.0-0.012) X10*3/uL Nucleated RBC % (auto) (0.0-0.2) /100WBC D-Dimer High Sensitivty NG/ML Sodium (135-145) mmol/L Potassium (3.3-5.1) mmol/L Chloride (96-108) mmol/L Carbon Dioxide (22-29) mmol/L Anion Gap (12-20) BUN (9-16) mg/dL Creatinine (0.5-1.4) mg/dL Estim Creat Clear Calc Estimated GFR Random Glucose (60-115) mg/dL Calcium (8.4-10.2) mg/dL Troponin I High Sens < 2.7 (<3.5-17.0) ng/L Critical Care Time Critical Care Time Critical Care Time: Yes Total Critical Care Time: 60 Attestation: I have personally provided critical care time. Time includes review of lab data, radiology results, discussion with consultants, and monitoring for potential decompensation. Intervention performed as documented. Discharge Plan Discharge Clinical Impression: Atypical chest pain Patient Disposition: Home, Self-Care Instructions: Chest Wall Pain (ED) Additional Instructions: Please follow-up with your primary care physician tomorrow. If you have any worsening or new symptoms, please return to the emergency room or call 911 Prescriptions: No Action lactulose 10 gram/15 mL (15 mL) solution 15 ml PO DAILY PRN (Reason: constipation) Qty: 600 0RF cyclobenzaprine 10 mg tablet 10 mg PO TID PRN (Reason: pain) Qty: 14 0RF ibuprofen 400 mg tablet 400 mg PO Q6H PRN (Reason: pain) Qty: 20 0RF cyclobenzaprine 10 mg tablet 10 mg PO TID PRN (Reason: muscle spasm) Qty: 10 0RF amlodipine [Norvasc] 5 mg tablet 5 mg PO DAILY Qty: 30 0RF hydroxyzine HCl 25 mg tablet 25 mg PO TID PRN (Reason: For anxiety) Qty: 10 0RF venlafaxine 100 mg tablet 100 mg PO BID Qty: 14 0RF hydroxyzine HCl 50 mg tablet 50 mg PO TID PRN (Reason: nausea and vomiting) Qty: 14 0RF Rx Instructions: PRN anxiety clonazepam [Klonopin] 1 mg tablet 1 mg PO BEDTIME PRN (Reason: Anxiety/sleep) Qty: 10 0RF Rx Instructions: administer 30 minutes before bedtime tramadol 50 mg tablet 50 mg PO Q6H PRN (Reason: pain) Qty: 20 0RF Interventions: ED Discharge Assessment Last Done: 02/21/23 19:40
[2023-02-21 16:48] VITALS: BP 117/85; PULSE 73; RESP 18; O2SAT 99
[2023-02-21 17:05] LABS: D Dimer High Sensitivity < 150 NG/ML
[2023-02-21 17:20] LABS: MANUAL DIFF FLAG NO
[2023-02-21 17:26] LABS: Basophils Percent Auto 0.3 % (0-2); Eosinophils Absolute Auto 0.1 X10*3/uL (0.0-0.4); Eosinophils Percent Auto 0.9 % (0-4); Hematocrit 39.7 % (37.0-47.0); Hemoglobin 13.5 g/dl (12.0-16.0); Imm Gran Abs Auto 0.04 X10*3/uL (0.00-0.03); Imm Gran Pct Auto 0.4 % (0.0-0.4); Lymphocytes Absolute Auto 2.1 X10*3/uL (1.2-4.9); Lymphocytes Percent Auto 22.9 % (20-40); Mean Corpuscular Hemoglobin 30.2 pg (27.0-33.0); Mean Corpuscular Volume 88.8 fL (80.0-98.0); Mean Platelet Volume 10.4 fL (9.4-12.3); Monocytes Absolute Auto 0.8 X10*3/uL (0.1-1.2); Monocytes Percent Auto 8.7 % (2-11); Neutrophils Absolute Auto 6.2 x10*3/uL (2.0-8.3); Neutrophils Percent Auto 66.8 % (45-73); Platelet Count 328 X10*3/uL (160-400); Red Blood Count 4.47 X10*6/uL (4.20-5.50); Red Cell Distribution Width 14.4 % (11.0-16.0); White Blood Count 9.3 X10*3/uL (4.8-10.8)
[2023-02-21 18:38] LABS: Anion Gap 17 (12-20); Blood Urea Nitrogen 8 mg/dL (9-16); Calcium 10.2 mg/dL (8.4-10.2); Carbon Dioxide 21 mmol/L (22-29); Chloride 102 mmol/L (96-108); Creatinine Clr Calc Pharmacy 97.1; Estimated Glomerular Filt Rate > 60; Glucose Random 91 mg/dL (60-115); Potassium 3.2 mmol/L (3.3-5.1); Sodium 137 mmol/L (135-145)
[2023-02-21 18:51] LABS: Troponin-I High Sensitivity < 2.7 ng/L (<3.5-17.0)
[2023-02-21 18:57] VITALS: BP 119/75; PULSE 70; RESP 17; TEMP 36.9; O2SAT 97
--- NOTE | 2023-02-21 19:23 | PC.NURSE ---
Went in to discharge pt, pt upset and states that she wants to speak with the physician. Dr. Tobias to bedside and explained that this afternoons results did not identify anything life threatening and that pt is ready for discharge. Pt continued to escalate and yell. Security called to bedside to escort pt out.
--- NOTE | 2023-02-21 19:25 | PC.NURSE ---
Security to bedside. Pt ripped out IV, and monitoring equipment.
--- NOTE | 2023-02-21 19:29 | PC.NURSE ---
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 Pt given card with department information and observed placing it in personal bag and states no I want the managers phone number! They gave it to me last time! I want to speak with the electrical supervisor! Pt continued to escalate yelling and being disruptive to other patients resulting in executive removal from emergency department. No respiratory or other acute distress noted.
== END 2023-02-21 19:41 | disposition home or self-care (01) ==
PROVIDERS: Emergency Provider Emergency Medicine; PCP Student in an Organized Health Care Education/Training Program
DX: R07.89 Other chest pain (principal); F12.90 Cannabis use, unspecified, uncomplicated; Z79.899 Other long term (current) drug therapy
CPT/HCPCS: 36415; 80048; 84484; 85025; 85379; 93005; 99283; 99284

== ENCOUNTER 2023-04-23 09:37 | Emergency (ER) | payer MEDICAID, SELFPAY ==
[2023-04-23 09:41] VITALS: BP 131/93; PULSE 91; RESP 18; TEMP 36.6; O2SAT 98; BMI 34.7
--- NOTE | 2023-04-23 09:43 | ECG_ITS ---
Test Reason : cp Blood Pressure : / mmHG Vent. Rate : 089 BPM Atrial Rate : 089 BPM P-R Int : 144 ms QRS Dur : 086 ms QT Int : 376 ms P-R-T Axes : 053 061 038 degrees QTc Int : 457 ms Normal sinus rhythm Left atrial enlargement Otherwise normal ECG When compared with ECG of 21-FEB-2023 15:50, No significant change was found Referred By: Generic ED Physician Electronically Signed By:LYNDA ARCE MD
[2023-04-23 10:21] LABS: MANUAL DIFF FLAG NO
[2023-04-23 10:24] LABS: Basophils Percent Auto 0.5 % (0-2); Eosinophils Absolute Auto 0.1 X10*3/uL (0.0-0.4); Eosinophils Percent Auto 1.3 % (0-4); Hematocrit 44.3 % (37.0-47.0); Imm Gran Abs Auto 0.03 X10*3/uL (0.00-0.03); Imm Gran Pct Auto 0.4 % (0.0-0.4); Lymphocytes Absolute Auto 1.9 X10*3/uL (1.2-4.9); Lymphocytes Percent Auto 24.1 % (20-40); Mean Corpuscular HGB Conc 33.9 g/dl (31.0-35.0); Mean Corpuscular Hemoglobin 30.2 pg (27.0-33.0); Mean Corpuscular Volume 89.3 fL (80.0-98.0); Mean Platelet Volume 9.7 fL (9.4-12.3); Monocytes Absolute Auto 0.6 X10*3/uL (0.1-1.2); Monocytes Percent Auto 7.7 % (2-11); Neutrophils Absolute Auto 5.1 x10*3/uL (2.0-8.3); Platelet Count 324 X10*3/uL (160-400); Red Blood Count 4.96 X10*6/uL (4.20-5.50); Red Cell Distribution Width 14.2 % (11.0-16.0); White Blood Count 7.8 X10*3/uL (4.8-10.8)
[2023-04-23 10:40] LABS: Anion Gap 14 (12-20); Blood Urea Nitrogen 5 mg/dL (9-16); Calcium 10.1 mg/dL (8.4-10.2); Carbon Dioxide 25 mmol/L (22-29); Chloride 106 mmol/L (96-108); Creatinine Clr Calc Pharmacy 84.6; Estimated Glomerular Filt Rate > 60; Glucose Random 112 mg/dL (60-115); Potassium 3.5 mmol/L (3.3-5.1); Sodium 141 mmol/L (135-145)
[2023-04-23 10:54] LABS: Troponin-I High Sensitivity < 2.7 ng/L (<3.5-17.0)
--- NOTE | 2023-04-23 11:06 | ED.CHESTPAIN ---
HPI - Chest Pain General Chief Complaint: Chest Pain Stated Complaint: Neck pain/Chest pain Time Seen by Provider: 04/23/23 11:06 Source: patient Mode of arrival: ambulatory Limitations: no limitations History of Present Illness HPI narrative: Patient is a 42 year old assigned female at with a medical history of HTN and anxiety presenting to the emergency department today with left sided neck, arm, and chest pain. Patient states that she has been having this pain intermittently over the last few months and has seen her PCP for it but is having a difficult time getting the pain treated. 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 Patient states that she has an orthopedic appointment. Patient denies any dizziness, lightheadedness, abdominal pain, nausea, vomiting, fever, chills, blurry vision, double vision, loss of vision, difficulty breathing, shortness of breath, back pain, night sweats, pain with urination, increased urinary frequency, increased urinary urgency, blood in her urine or stool, syncope or a near syncopal episode, recent trauma or falls, bowel incontinence, bladder incontinence, bowel retention, bladder retention, or any other complaints at this time. Treatment prior to arrival: none Related Data Previous Rx's Medication Instructions Recorded lactulose 10 gram/15 mL (15 mL) 15 ml PO DAILY PRN constipation 10/24/20 oral solution #600 mL amlodipine 5 mg tablet (Norvasc) 5 mg PO DAILY #30 tabs 05/15/22 cyclobenzaprine 10 mg tablet 10 mg PO TID PRN muscle spasm #10 05/15/22 tabs cyclobenzaprine 10 mg tablet 10 mg PO TID PRN pain #14 tabs 07/31/22 ibuprofen 400 mg tablet 400 mg PO Q6H PRN pain #20 tabs 07/31/22 hydroxyzine HCl 25 mg tablet 25 mg PO TID PRN For anxiety #10 10/01/22 tabs venlafaxine 100 mg tablet 100 mg PO BID #14 tabs 10/01/22 hydroxyzine HCl 50 mg tablet 50 mg PO TID PRN nausea and 12/10/22 vomiting #14 tabs clonazepam 1 mg tablet (Klonopin) 1 mg PO BEDTIME PRN Anxiety/sleep 12/11/22 #10 tabs tramadol 50 mg tablet 50 mg PO Q6H PRN pain #20 tabs 12/11/22 cyclobenzaprine 5 mg tablet 5 mg PO TID PRN muscle spasm 7 04/23/23 days #21 tabs prednisone 20 mg tablet 20 mg PO DAILY 7 days #7 tabs 04/23/23 Allergies Allergy/AdvReac Type Severity Reaction Status Date / Time hydrocodone [From VICODIN] Allergy Unknown TACHYCARDIA Verified 04/23/23 09:41 hydroxyzine AdvReac Severe Weakness Verified 04/23/23 09:41 Review of Systems Constitutional: Constitutional: Reports no additional constitutional complaints, Denies chills, Denies fever(s) and Denies night sweats Eyes: Eyes: Reports no additional eye complaints, Denies blurry vision, Denies change in vision, Denies diplopia, Denies eye discharge, Denies loss of vision and Denies eye pain ENT: Denies dizziness and Reports neck pain Cardiovascular: Cardiovascular: Reports no additional cardiovascular complaints, Reports chest pain, Denies lightheadedness, Denies Loss of Consciousness and Denies dyspnea Respiratory: Respiratory: Reports no additional respiratory complaints and Denies dyspnea Gastrointestinal: Gastrointestinal: Reports no additional gastrointestinal complaints, Denies abdominal pain, Denies melena, Denies hematochezia, Denies change in bowel habits and Denies change in stool character Genitourinary: Genitourinary: Denies hematuria, Denies urinary frequency, Denies dysuria, Denies urinary incontinence, Denies urinary hesitancy and Denies urinary urgency Musculoskeletal: Musculoskeletal: Reports no additional musculoskeletal complaints, Reports neck pain, Denies numbness and Denies tingling Neurologic: Denies dizziness, Denies loss of vision, Denies numbness and Denies tingling Psychiatric: Psychiatric: Reports no additional psychiatric complaints Endocrine: Endocrine: Reports no additional endocrine complaints Hematologic/Lymphatic: Hematologic/Lymphatic: Reports no additional hematologic/lymphatic complaints Allergic/Immunologic: Allergic/Immunologic: Reports no additional allergic/immunologic complaints COUNTS INCLUDE 234 BEDS AT THE [facility] Past Medical History Attestation statement: The following information was validated with the patient. Source: old records reviewed and nursing notes reviewed Medical History Anxiety Social History Social History Alcohol intake: former Smoked in Last 30 Days: No Use of substances other than those prescribed or required for medical reasons: Yes Substance Use Type: Marijuana Advance Directives: No Physical Exam Vital Signs: Vital Signs: Last Vital Signs Temp 97.9 F 04/23/23 09:41 Pulse 80 04/23/23 11:41 Resp 18 04/23/23 11:41 BP 124/85 04/23/23 11:41 Pulse Ox 100 04/23/23 11:41 O2 Del Method Room Air 04/23/23 11:41 BMI result Body Mass Index 34.7 Const: General: cooperative, no acute distress, alert and awake Nutritional Appearance: well nourished Orientation/consciousness: patient oriented x3 Limitations: no limitations HEENT: Head: Yes normal to inspection and Yes atraumatic Ears: hearing grossly normal bilaterally and external ears normal General nose exam: Normal external nose present, no nasal discharge noted and no epistaxis Face and sinus: Yes normal facial exam, No abrasion and No laceration Mouth: Normal oral and palatal mucosa present, no drooling and no muffled voice Eyes: General: appearance normal, both eyes and all related structures Periorbital: periorbital findings normal Eyelids: Yes eyelids normal Conjunctivae: conjunctivae normal Pupils: Equal, round and reactive pupils present EOM: EOMs intact bilaterally Neck: Neck: Yes normal visual inspection, Yes full ROM and Yes no lymphadenopathy Chest: Chest palpation & inspection: normal inspection of the chest Resp: Effort & Inspection: normal respiratory effort and able to speak in complete sentences Auscultation: clear to auscultation bilaterally Cardio: Rate: regular rate Rhythm: regular rhythm GI: Inspection: Yes normal to inspection : General: Yes no CVA tenderness Back/Spine/Pelvis: Back: no CVA tenderness Cervical Spine: normal cervical lordosis and cervical ROM normal Thoracic/Lumbar Spine: thoracic and lumbar spine normal to inspection and thoraco-lumbar ROM normal Neuro: General: patient oriented x3 and moves all extremities Cranial nerves: Yes Equal, round and reactive pupils present Cognition (Neuro): normal cognition Motor exam (neuro): 5/5 motor strength present throughout Sensory Exam: Normal double simultaneous stimulation for sensation Coordination: [id number] test normal Extrem: General: Yes normal to inspection, Yes full ROM and Yes capillary refill normal Psych: Appearance: grossly normal Mental Status: mental status grossly normal Affect: normal affect Attitude: cooperative Thought process: Normal thought process present Thought content: Normal thought content present Insight: Good insight present (Psych) Medications Administered Discontinued Medications Generic Name Dose Route Start Last Admin Trade Name Samina PRN Reason Stop Dose Admin Cyclobenzaprine HCl 5 mg 04/23/23 11:26 04/23/23 11:44 Cyclobenzaprine Hcl 5 Mg Tablet PO 04/23/23 11:27 5 mg ONCE ONE Administration Ketorolac Tromethamine 15 mg 04/23/23 11:26 04/23/23 11:44 Ketorolac Tromethamine 15 Mg/Ml Vial IM 04/23/23 11:27 15 mg ONCE ONE Administration Prednisone 20 mg 04/23/23 11:26 04/23/23 11:44 Prednisone 20 Mg Tablet PO 04/23/23 11:27 20 mg ONCE ONE Administration Medical Decision Making Medical Decision Making [facility] Narrative: Patient is a 42 year old assigned female at with a history of HTN and anxiety presenting to the emergency department today with left neck, shoulder, and chest pain. Patient's physical exam was unremarkable. Patient's blood work was unremarkable. Patient's EKG was unremarkable. I explained my physical exam findings as well as all test results to the patient. I answered all questions asked by the patient. Patient received IM Toradol, PO Flexeril, and PO Prednisone which she stated helped her symptoms significantly. I stressed the importance of the patient taking her medication as prescribed. I stressed the importance of the patient following up with her primary care provider, a computer network support specialist, and an orthopedist. I stressed the importance of the patient returning to the emergency department immediately if her symptoms were to worsen or if she were to develop any dizziness, shortness of breath, difficulty breathing, chest pain, blurry vision, loss of vision, nausea, vomiting, abdominal pain, fever, chills, back pain, or any other complaints. Patient verbalized agreement and understanding with this treatment plan and discharge. Differential Diagnosis Differential Diagnoses: The differential diagnosis associated with the presentation includes NSTEMI STEMI Cervical radiculopathy Admission/Observation Consideration of admission/observation: Escalation of care including admission/observation considered Patient would have been admitted to the hospital had her work up had any findings where hospital admission was appropriate and her clinical presentation warranted hospital admission. Lab Data MDM Lab Attestation statement: I reviewed the patient's lab results. My interpretation of these studies and their corresponding values is that they are grossly normal. 04/23/23 10:18 04/23/23 10:18 Labs: Lab Results 04/23/23 Range/Units 10:18 WBC 7.8 (4.8-10.8) X10*3/uL RBC 4.96 (4.20-5.50) X10*6/uL Hgb 15.0 (12.0-16.0) g/dl Hct 44.3 (37.0-47.0) % MCV 89.3 (80.0-98.0) fL MCH 30.2 (27.0-33.0) pg MCHC 33.9 (31.0-35.0) g/dl RDW 14.2 (11.0-16.0) % Plt Count 324 (160-400) X10*3/uL MPV 9.7 (9.4-12.3) fL Immature Gran % (Auto) 0.4 (0.0-0.4) % Neut % (Auto) 66.0 (45-73) % Lymph % (Auto) 24.1 (20-40) % Camp % (Auto) 7.7 (2-11) % Eos % (Auto) 1.3 (0-4) % Baso % (Auto) 0.5 (0-2) % Lymph # (Auto) 1.9 (1.2-4.9) X10*3/uL Camp # (Auto) 0.6 (0.1-1.2) X10*3/uL Eos # (Auto) 0.1 (0.0-0.4) X10*3/uL Baso # (Auto) 0.0 (0.0-0.2) X10*3/uL Abs Immat Gran (auto) 0.03 (0.00-0.03) X10*3/uL Absolute Neuts (auto) 5.1 (2.0-8.3) x10*3/uL Absolute Nucleated RBC 0.000 (0.0-0.012) X10*3/uL Nucleated RBC % (auto) 0.0 (0.0-0.2) /100WBC Sodium 141 (135-145) mmol/L Potassium 3.5 (3.3-5.1) mmol/L Chloride 106 (96-108) mmol/L Carbon Dioxide 25 (22-29) mmol/L Anion Gap 14 (12-20) BUN 5 L (9-16) mg/dL Creatinine 0.84 (0.5-1.4) mg/dL Estim Creat Clear Calc 84.6 Estimated GFR > 60 Random Glucose 112 (60-115) mg/dL Calcium 10.1 (8.4-10.2) mg/dL Troponin I High Sens < 2.7 (<3.5-17.0) ng/L Independent Interpretation I performed an independent interpretation of an: EKG Interpretation: Vent. Rate: 089 BPM Atrial Rate: 089 BPM P-R Int: 144 ms QRS Dur: 086 ms QT Int: 376 ms P-R-T Axes: 053 061 038 degrees QTc Int: 457 ms Normal sinus rhythm Normal ECG When compared with ECG of 21-FEB-2023 15:50, No significant change was found [id number]/ [id number] Prescription Management I considered prescription management with: Pain Medication (patient prescribed pain medication) Chronic Conditions Patient?s care impacted by: Hypertension Discharge Plan Discharge Clinical Impression: Cervical radiculopathy Patient Disposition: Home, Self-Care Instructions: Cervical Radiculopathy (ED) Additional Instructions: Follow up with your primary care provider and a computer network support specialist. Return to the emergency department immediately if your symptoms worsen or if you develop any dizziness, shortness of breath, difficulty breathing, chest pain, blurry vision, loss of vision, nausea, vomiting, abdominal pain, fever, chills, back pain, or any other complaints. Prescriptions: New cyclobenzaprine 5 mg tablet 5 mg PO TID PRN (Reason: muscle spasm) 7 Days Qty: 21 0RF prednisone 20 mg tablet 20 mg PO DAILY 7 Days Qty: 7 0RF No Action lactulose 10 gram/15 mL (15 mL) solution 15 ml PO DAILY PRN (Reason: constipation) Qty: 600 0RF cyclobenzaprine 10 mg tablet 10 mg PO TID PRN (Reason: pain) Qty: 14 0RF ibuprofen 400 mg tablet 400 mg PO Q6H PRN (Reason: pain) Qty: 20 0RF cyclobenzaprine 10 mg tablet 10 mg PO TID PRN (Reason: muscle spasm) Qty: 10 0RF amlodipine [Norvasc] 5 mg tablet 5 mg PO DAILY Qty: 30 0RF hydroxyzine HCl 25 mg tablet 25 mg PO TID PRN (Reason: For anxiety) Qty: 10 0RF venlafaxine 100 mg tablet 100 mg PO BID Qty: 14 0RF hydroxyzine HCl 50 mg tablet 50 mg PO TID PRN (Reason: nausea and vomiting) Qty: 14 0RF Rx Instructions: PRN anxiety clonazepam [Klonopin] 1 mg tablet 1 mg PO BEDTIME PRN (Reason: Anxiety/sleep) Qty: 10 0RF Rx Instructions: administer 30 minutes before bedtime tramadol 50 mg tablet 50 mg PO Q6H PRN (Reason: pain) Qty: 20 0RF Referrals: [facility] [Provider Group] (Call to establish and follow up with your computer network support specialist. ) Ceci Torres MD [Primary Care Provider] - Stand Alone Forms: Work/School Release Interventions: ED Discharge Assessment Last Done: 04/23/23 11:50 Discharge Date/Time: 04/23/23 11:51 Print Language: Nauruan
[2023-04-23 11:38] VITALS: PULSE 86
[2023-04-23 11:41] VITALS: BP 124/85; PULSE 80; RESP 18; O2SAT 100
[2023-04-23] MEDS: predniSONE 20 MG TABLET PO (11:44)
[2023-04-23] MEDS: Cyclobenzaprine HCl 5 MG TABLET PO (11:44)
[2023-04-23] MEDS: Ketorolac Tromethamine 15 MG/ML VIAL IM (11:44)
== END 2023-04-23 11:51 | disposition home or self-care (01) ==
PROVIDERS: Emergency Provider Emergency Medicine; PCP Student in an Organized Health Care Education/Training Program
DX: M54.12 Radiculopathy, cervical region (principal); I10 Essential (primary) hypertension; F41.9 Anxiety disorder, unspecified; F12.90 Cannabis use, unspecified, uncomplicated; Z79.899 Other long term (current) drug therapy
CPT/HCPCS: 36415; 80048; 84484; 85025; 93005; 96372; 99284; 99285; J1885

== ENCOUNTER 2023-06-04 08:07 | Emergency (ER) | payer MEDICAID, SELFPAY ==
[2023-06-04 08:11] VITALS: BP 122/77; PULSE 97; RESP 19; TEMP 37.2; O2SAT 98; BMI 33.6
[2023-06-04 08:33] LABS: MANUAL DIFF FLAG NO
[2023-06-04 08:36] LABS: Appearance Urine Clear; Color Urine Yellow; Glucose Urine UA Negative (Negative); Leukocyte Esterase Urine Trace (Negative); Nitrite Urine Negative (Negative); PH 6.5 (5.0-9.0); UMIC TRIGGER UACC YES; Urine Blood Large (3+) (Negative); Urine Ketones Negative (Negative); Urine Protein Trace mg/dL (Neg-Trace)
[2023-06-04 08:38] LABS: UPreg QC Valid YES; Urine Pregnancy NEGATIVE (NEGATIVE)
[2023-06-04 08:38] LABS: Bacteria Urine 1+ (None Seen); Basophils Percent Auto 0.6 % (0-2); Hematocrit 41.4 % (37.0-47.0); Hemoglobin 13.7 g/dl (12.0-16.0); Hyaline Casts Urine 0-2 /LPF (0-2); Imm Gran Abs Auto 0.02 X10*3/uL (0.00-0.03); Imm Gran Pct Auto 0.4 % (0.0-0.4); Lymphocytes Absolute Auto 0.7 X10*3/uL (1.2-4.9); Lymphocytes Percent Auto 12.6 % (20-40); Mean Corpuscular HGB Conc 33.1 g/dl (31.0-35.0); Mean Corpuscular Hemoglobin 29.4 pg (27.0-33.0); Mean Corpuscular Volume 88.8 fL (80.0-98.0); Mean Platelet Volume 9.8 fL (9.4-12.3); Monocytes Absolute Auto 0.8 X10*3/uL (0.1-1.2); Monocytes Percent Auto 14.5 % (2-11); Neutrophils Absolute Auto 3.7 x10*3/uL (2.0-8.3); Neutrophils Percent Auto 71.9 % (45-73); Platelet Count 261 X10*3/uL (160-400); Red Blood Count 4.66 X10*6/uL (4.20-5.50); Red Cell Distribution Width 14.4 % (11.0-16.0); WBC Urine 0-5 /HPF (0-5); White Blood Count 5.2 X10*3/uL (4.8-10.8)
[2023-06-04 08:45] LABS: Anion Gap 13 (12-20); Blood Urea Nitrogen 4 mg/dL (9-16); Calcium 9.3 mg/dL (8.4-10.2); Carbon Dioxide 25 mmol/L (22-29); Chloride 105 mmol/L (96-108); Creatinine Clr Calc Pharmacy 78.4; Estimated Glomerular Filt Rate > 60; Glucose Random 99 mg/dL (60-115); Potassium 2.7 mmol/L (3.3-5.1); Sodium 140 mmol/L (135-145)
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
[2023-06-04 09:11] VITALS: BP 124/84; PULSE 88; RESP 18; O2SAT 98
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
[2023-06-04 09:42] LABS: Influenza A PCR POSITIVE (Negative); Influenza B PCR NEGATIVE (Negative); Resp Syncy Virus RNA Qual PCR NEGATIVE (Negative); SARS COV2 PCR INHOUSE NEGATIVE (Negative)
[2023-06-04] MEDS: Acetaminophen 325 MG TABLET 975 MG PO (10:28)
[2023-06-04 10:29] VITALS: BP 128/82; PULSE 68; RESP 18; O2SAT 98
== END 2023-06-04 10:52 | disposition home or self-care (01) ==
PROVIDERS: Emergency Provider Emergency Medicine Emergency Medical Services; PCP Student in an Organized Health Care Education/Training Program
DX: J10.1 Influenza due to other identified influenza virus with other respiratory manifestations (principal); R51.9 Headache, unspecified; R11.2 Nausea with vomiting, unspecified; M79.10 Myalgia, unspecified site; Z20.822 Contact with and (suspected) exposure to COVID-19; Z20.828 Contact with and (suspected) exposure to other viral communicable diseases; Z79.899 Other long term (current) drug therapy
CPT/HCPCS: 0241U; 36415; 80048; 81001; 81025; 85025; 99283; 99284

== ENCOUNTER 2023-06-04 16:08 | Emergency (ER) | payer MEDICAID, SELFPAY ==
--- NOTE | 2023-06-04 | ECG_ITS ---
Test Reason : cp Blood Pressure : / mmHG Vent. Rate : 078 BPM Atrial Rate : 078 BPM P-R Int : 142 ms QRS Dur : 090 ms QT Int : 392 ms P-R-T Axes : 068 068 035 degrees QTc Int : 446 ms Normal sinus rhythm Normal ECG When compared with ECG of 23-APR-2023 09:48, No significant change was found Referred By: Generic ED Physician Electronically Signed By:Ronak Lin
--- NOTE | ~2023-06-04 | XR_ITS ---
EXAMINATION: XR CHEST CLINICAL INFORMATION: Cough. COMPARISON: 10/01/2022. TECHNIQUE: 2 views of the chest were obtained. FINDINGS: No significant abnormality is noted involving the heart, lungs, mediastinum, bony thorax or soft tissues. XR/XR chest 2V IMPRESSION: Unremarkable examination.
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
[2023-06-04 16:31] VITALS: BP 128/83; PULSE 83; RESP 18; TEMP 36.2; O2SAT 98; BMI 32.1
[2023-06-04 17:01] LABS: Anion Gap 12 (12-20); Blood Urea Nitrogen 4 mg/dL (9-16); Calcium 9.2 mg/dL (8.4-10.2); Carbon Dioxide 25 mmol/L (22-29); Chloride 107 mmol/L (96-108); Creatinine Clr Calc Pharmacy 82.1; Estimated Glomerular Filt Rate > 60; Glucose Random 116 mg/dL (60-115); Potassium 2.8 mmol/L (3.3-5.1); Sodium 141 mmol/L (135-145)
[2023-06-04 19:38] VITALS: BP 143/92; PULSE 79; RESP 18; TEMP 36.8; O2SAT 99
[2023-06-04] MEDS: Potassium Chloride Packet 20 MEQ PACKET 60 MEQ PO (19:43)
--- NOTE | 2023-06-04 19:52 | PC.NURSE ---
pt medicated per MAR.
[2023-06-04] MEDS: Acetaminophen 325 MG TABLET 650 MG PO (20:08)
[2023-06-04] MEDS: Ondansetron ODT 4 MG TAB.RAPDIS TRANSLINGU (20:09)
== END 2023-06-04 21:21 | disposition left against medical advice (07) ==
PROVIDERS: Physician Assistant; Emergency Provider Emergency Medicine
DX: R07.89 Other chest pain (principal); Z79.899 Other long term (current) drug therapy
CPT/HCPCS: 36415; 71046; 80048; 93005; 99283

== ENCOUNTER → 2023-06-04 16:21 | Outpatient (BNV) | payer MEDICAID, SELFPAY | PROVIDERS: Emergency Provider Emergency Medicine; Visit Provider Internal Medicine Cardiovascular Disease | DX: R07.9 Chest pain, unspecified (principal) | CPT/HCPCS: 93010 ==

== ENCOUNTER 2023-06-06 13:41 | Emergency (ER) | payer MEDICAID, SELFPAY ==
--- NOTE | 2023-06-06 13:42 | ECG_ITS ---
Test Reason : chest pain Blood Pressure : / mmHG Vent. Rate : 074 BPM Atrial Rate : 074 BPM P-R Int : 152 ms QRS Dur : 088 ms QT Int : 394 ms P-R-T Axes : 070 073 052 degrees QTc Int : 437 ms Normal sinus rhythm with sinus arrhythmia Possible Left atrial enlargement Borderline ECG When compared with ECG of 04-JUN-2023 16:21, No significant change was found Referred By: Generic ED Physician Electronically Signed By:Ronak Lin
[2023-06-06 13:56] VITALS: BP 135/82; PULSE 85; RESP 20; TEMP 36.9; O2SAT 98; BMI 32.1
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
[2023-06-06 14:42] LABS: MANUAL DIFF FLAG NO
[2023-06-06 14:45] LABS: Basophils Percent Auto 0.2 % (0-2); Hematocrit 43.5 % (37.0-47.0); Hemoglobin 14.4 g/dl (12.0-16.0); Imm Gran Abs Auto 0.01 X10*3/uL (0.00-0.03); Imm Gran Pct Auto 0.2 % (0.0-0.4); Lymphocytes Absolute Auto 1.6 X10*3/uL (1.2-4.9); Lymphocytes Percent Auto 33.1 % (20-40); Mean Corpuscular HGB Conc 33.1 g/dl (31.0-35.0); Mean Corpuscular Hemoglobin 29.4 pg (27.0-33.0); Mean Platelet Volume 9.9 fL (9.4-12.3); Monocytes Absolute Auto 0.6 X10*3/uL (0.1-1.2); Monocytes Percent Auto 12.5 % (2-11); Neutrophils Absolute Auto 2.6 x10*3/uL (2.0-8.3); Platelet Count 287 X10*3/uL (160-400); Red Blood Count 4.89 X10*6/uL (4.20-5.50); Red Cell Distribution Width 14.5 % (11.0-16.0); White Blood Count 4.8 X10*3/uL (4.8-10.8)
[2023-06-06 14:59] LABS: Anion Gap 11 (12-20); Blood Urea Nitrogen 8 mg/dL (9-16); Calcium 9.5 mg/dL (8.4-10.2); Carbon Dioxide 28 mmol/L (22-29); Chloride 104 mmol/L (96-108); Creatinine Clr Calc Pharmacy 89.7; Estimated Glomerular Filt Rate > 60; Glucose Random 93 mg/dL (60-115); Potassium 3.5 mmol/L (3.3-5.1); Sodium 139 mmol/L (135-145)
[2023-06-06 15:08] LABS: Troponin-I High Sensitivity < 2.7 ng/L (<3.5-17.0)
== END 2023-06-06 19:52 | disposition left against medical advice (07) ==
PROVIDERS: Registered Nurse Emergency; Emergency Provider Emergency Medicine
DX: R51.9 Headache, unspecified (principal); R07.89 Other chest pain; Z79.899 Other long term (current) drug therapy
CPT/HCPCS: 36415; 80048; 84484; 85025; 93005; 99283

== ENCOUNTER → 2023-06-06 13:42 | Outpatient (BNV) | payer MEDICAID, SELFPAY | PROVIDERS: Emergency Provider Emergency Medicine; Visit Provider Internal Medicine Cardiovascular Disease | DX: I49.9 Cardiac arrhythmia, unspecified (principal) | CPT/HCPCS: 93010 ==

== ENCOUNTER 2023-07-04 10:43 | Outpatient (REF) | payer MEDICAID, SELFPAY | END 2023-07-04 10:44 | disposition home or self-care (01) | LOC: HO.HOSX 10:43 | PROVIDERS: Visit Provider Orthopaedic Surgery | DX: Z13.89 Encounter for screening for other disorder (principal) ==